=== PATIENT | female | born 1980 | race Caucasian/White ===

== ENCOUNTER → 2016-03-28 | Outpatient (CLI) | payer BC ==
[~2016-03-28] MED LIST: ALBUAER2; IBUP600T44; NVLGI; OXYC-57; SYN100; SYN50
== END | disposition home or self-care (01) ==
LOC: C.PAPS 11:42
PROVIDERS: ATTEND Obstetrics & Gynecology
DX: Z01.419 Encounter for gynecological examination (general) (routine) without abnormal findings (principal); Z87.42 Personal history of other diseases of the female genital tract

== ENCOUNTER → 2016-08-11 | Outpatient (CLI) | payer BC ==
[2016-08-11 17:39] LABS: PREG INTERNAL NEGATIVE QC NEG CLEAR BACKGROUND; PREG INTERNAL POSITIVE QC POS CONTROL LINE
== END | disposition home or self-care (01) ==
LOC: C.LAB1850 16:30
PROVIDERS: ATTEND Obstetrics & Gynecology
DX: N93.9 Abnormal uterine and vaginal bleeding, unspecified (principal)

== ENCOUNTER → 2017-01-05 | Outpatient (CLI) | payer BC ==
[~2017-01-05] MED LIST changes: +GADAVIST IV PRN
--- NOTE | 2017-01-05 12:13 | DIAGNOSTIC IMAGING REPORT ---
Brain MRA HISTORY: HEADACHE TECHNIQUE: 3-D [id number] MRA of the brain was performed without contrast. COMPARISON STUDY: None. FINDINGS: Visualized intracranial internal carotid arteries, distal vertebral arteries, and basilar artery are widely patent. There is no significant stenosis, occlusion, or aneurysm seen within the bilateral ACAs, MCAs, or assistant golf professional. IMPRESSION: No significant stenosis, occlusion, or aneurysm within the [place]. Electronically signed by: Kevin Bynum M.D. 01/05/2017 12:11 PM Dictated Date/Time: 01/05/2017 12:09 PM
--- NOTE | 2017-01-05 12:23 | DIAGNOSTIC IMAGING REPORT ---
Brain MRI WITH AND WITHOUT CONTRAST HISTORY: HEADACHE TECHNIQUE: Multiplanar multisequence MRI of the brain was performed both before and after the intravenous administration of contrast. COMPARISON STUDY: None. FINDINGS: There are no areas of restricted diffusion to suggest acute infarction. The midline structures are intact. The paranasal sinuses are clear. The mastoid air cells are clear. The ventricles and sulci are within normal limits for age. There is no mass, hematoma, midline shift. The major vascular flow-voids at the skull base are well maintained. Postcontrast sequences show no areas of abnormal enhancement. IMPRESSION: No acute intracranial abnormality. Electronically signed by: Kevin Bynum M.D. 01/05/2017 12:22 PM Dictated Date/Time: 01/05/2017 12:14 PM
--- NOTE | 2017-01-05 12:26 | DIAGNOSTIC IMAGING REPORT ---
NECK MRA HISTORY: R51 [id number] Near-syncope or [id number] TECHNIQUE: [id number] and gadolinium-enhanced MRA of the neck was performed both before and after the intravenous administration of contrast. All measurements were calculated based on NASCET criteria. COMPARISON STUDY: None. FINDINGS: The aortic arch and proximal great vessels are widely patent. There is no significant stenosis, occlusion, or dissection identified within the bilateral common carotid, internal carotid, or vertebral arteries. IMPRESSION: No significant stenosis, occlusion, or dissection identified within the carotid or vertebral arteries. Electronically signed by: Kevin Bynum M.D. 01/05/2017 12:25 PM Dictated Date/Time: 01/05/2017 12:22 PM
== END | disposition home or self-care (01) ==
LOC: C.MRI 10:28
PROVIDERS: ATTEND Nurse Practitioner Family
DX: R55 Syncope and collapse (principal); R51 Headache

== ENCOUNTER → 2017-02-23 | Day surgery (SDC) | payer BC ==
[~2017-02-23] VITALS: Ht 172.7 cm; Wt 90.0 kg
[~2017-02-23] MED LIST changes: +ADVIN25/60 INH; +FERR1TAB2 PO; +FLVHFA110 INH; -GADAVIST IV PRN; +MECL1TAB42 PO; +MONT1TAB5 PO; +MULT-506 PO; +Mirena; +NOVOLOG; +VNTHFA/IN INH; +[UNRECOGNIZED DRUG - OTHER]; +[UNRECOGNIZED DRUG - OTHER]
[2017-02-23 07:02] VITALS: Ht 172.7 cm; Wt 90.0 kg
--- NOTE | 2017-02-23 08:31 | [facility] Operative Report ---
Operative Report Operative Date Feb 23, 2017. Pre-Operative Diagnosis Intermittent dizziness Post-Operative Diagnosis same Procedure(s) Performed Tilt table test Surgeon Dr. Aguila Land Leveler Surgeon(s) none Estimated Blood Loss none Findings Normal tilt test Specimens None Complication(s) None Disposition home Description of Procedure After obtaining informed consent for the procedure, the patient was brought to the laboratory having nothing by mouth after midnight. The patient was identified in the laboratory, placed supine on the tilt table and remained supine for 15 minutes. The head of the tilt table was then raised to a 70 head up position where it remained for 30 minutes. The head of the bed was then placed supine and monitoring continued for an additional 15 minutes. During the procedure continuous pulse oximetry and electrocardiography was performed, noninvasive blood pressure monitoring was performed at five-minute intervals. Findings: The heart rate and blood pressure did not fall during the study. Pulse oximetry was unchanged throughout the study. There was no significant change in blood pressure or heart rate when the patient was placed supine. Details of the blood pressure, heart rate and pulse oximetry data are presented on the procedure data sheet. Conclusions: Normal tilt test with no evidence of orthostasis or vasovagal physiology I attest to the content of the Intraoperative Record and any orders documented therein. Any exceptions are noted below.
== END | disposition home or self-care (01) ==
LOC: C.CATH 06:48
PROVIDERS: ATTEND Internal Medicine Cardiovascular Disease
DX: R42 Dizziness and giddiness (principal); R51 Headache; J30.9 Allergic rhinitis, unspecified; J45.909 Unspecified asthma, uncomplicated; I89.0 Lymphedema, not elsewhere classified; E10.9 Type 1 diabetes mellitus without complications; Z83.3 Family history of diabetes mellitus; Z82.49 Family history of ischemic heart disease and other diseases of the circulatory system; Z82.3 Family history of stroke

== ENCOUNTER 2020-09-15 10:35 | Inpatient (IN) ==
[2020-09-15] MEDS ORDERED: SODIUM CHLORIDE 0.9% 1000ML 2,000 ML IV ONE (11:58)
[2020-09-15] MEDS ORDERED: cefTRIAXone SODIUM 2,000 MG/70 ML BAG IV STA (11:58)
[2020-09-15] MEDS ORDERED: DOXYCYCLINE HYCLATE 100 MG in DEXTROSE 5% 100 ML IV STA (11:58)
[2020-09-15] MEDS ORDERED: FAMOTIDINE 20MG IV PUSH 20 MG/5 ML SYR IV STA (11:59)
[2020-09-15] MEDS ORDERED: ONDANSETRON INJ 2 MG/ML 2 ML VIAL IV STA (11:59)
[2020-09-15 12:09] LABS: Basophils # (auto) 0.01 K/uL (0-0.2); Basophils % (auto) 0.1 %; Eosinophils # (auto) 0.12 K/uL (0-0.5); Hematocrit (blood only) 38.1 % (37-47); Hemoglobin 12.8 g/dL (12.0-16.0); Immature Granulocytes # (auto) 0.04 K/uL (0.00-0.02); Immature Granulocytes % (auto) 0.3 %; Lymphocytes # (auto) 0.94 K/uL (1.2-3.4); Lymphocytes % (auto) 8.1 %; Mean Corpuscular Hemoglobin 30.5 pg (25-34); Mean Corpuscular Hgb Conc 33.6 g/dL (32-36); Mean Corpuscular Volume 90.9 fL (80-100); Mean Platelet Volume 11.3 fL (7.4-10.4); Monocytes # (auto) 0.92 K/uL (0.11-0.59); Neutrophils # (auto) 9.52 K/uL (1.4-6.5); Neutrophils % (auto) 82.5 %; Platelet Count 187 K/uL (130-400); RDW Coefficient of Variation 13.1 % (11.5-14.5); RDW Standard Deviation 43.7 fL (36.4-46.3); Red Blood Count 4.19 M/uL (4.2-5.4); White Blood Count 11.55 K/uL (4.8-10.8)
[2020-09-15 12:17] LABS: Alanine Aminotransferase 40 U/L (12-78); Albumin Level 3.7 gm/dl (3.4-5.0); Aspartate Aminotransferase 18 U/L (15-37); Bilirubin Direct 0.7 mg/dl (0-0.2); Blood Urea Nitrogen 14 mg/dl (7-18); Calcium 9.1 mg/dl (8.5-10.1); Carbon Dioxide 25 mmol/L (21-32); Chloride 101 mmol/L (98-107); Creatinine Clr Calc Pharmacy 83.9 ml/min; Est GFR (Non-African American) 79.4 ml/min; Glucose 188 mg/dl (70-99); Lipase 47 U/L (73-393); Magnesium 2.2 mg/dl (1.8-2.4); Potassium 3.2 mmol/L (3.5-5.1); Sodium 136 mmol/L (136-145)
[2020-09-15 12:19] LABS: Appearance Urine Cloudy (Clear); Bilirubin Urine Negative (Negative); Blood Urine Negative (Negative); Color Urine Yellow; Glucose Urine UA Negative (Negative); Ketones Urine 2+ (Negative); Leukocyte Esterase Urine Trace (Negative); Nitrite Urine Negative (Negative); Protein Urine Trace (Negative); Specific Gravity Urine 1.007 (1.000-1.030); Urobilinogen Urine Negative (Negative)
[2020-09-15 12:20] LABS: Albumin Globulin Ratio 0.8 (0.9-2); Alkaline Phosphatase 111 U/L (45-117); Bilirubin,Total 1.7 mg/dl (0.2-1); Creatine Kinase 43 U/L (26-192); Globulin 4.5 gm/dl (2.5-4.0); Partial Thromboplastin Ratio 1.3; Partial Thromboplastin Time 35.4 Seconds (21.0-31.0); Phosphorus 2.2 mg/dl (2.5-4.9); Total Protein 8.2 gm/dl (6.4-8.2); Troponin I < 0.015 ng/ml (0-0.045)
[2020-09-15 12:28] LABS: Epithelial Cell Urine >30 /lpf (0-5)
[2020-09-15 12:29] LABS: Bacteria Urine 1+ (Negative); RBC Urine 0-4 /hpf (0-4)
[2020-09-15 12:35] LABS: Base Excess VBG -0.4 mEq/L; HCO3 VBG 24 mmol/L; PCO2 VBG 38 mmHg (38-50); PO2 VBG 32 mmHg; pH VBG 7.42 (7.36-7.41)
[2020-09-15 12:37] LABS: Oxygen Saturation VBG < 60.0 %
[2020-09-15 12:39] LABS: Pregnancy Test, Serum Negative (Negative)
[2020-09-15 12:50] LABS: RBC Morphology Unremarkable
--- NOTE | 2020-09-15 12:59 | XRay Report ---
XR chest 1V portable CLINICAL HISTORY: Chest Pain COMPARISON STUDY: No previous studies for comparison. FINDINGS: Lung volumes are normal. Lungs are clear. There is no pneumothorax or pleural effusion. Car diac size is normal. Mediastinal contours are normal. There is no evidence for pulmonary edema. There is subtle interstitial prominence. IMPRESSION: Mild nonspecific interstitial prominence. ACT 112: Negative or not required by law. Electronically signed by: Rolando Santana M.D. 09/15/2020 12:57 PM
--- NOTE | 2020-09-15 13:04 | XRay Report ---
XR tibia fibula RT 2V CLINICAL HISTORY: swelling, pain, redness COMPARISON: Right ankle radiographs August 26, 2019. FINDINGS: No fracture or osseous lesion within the right tibia or fibula is identified. Mild soft ti ssue swelling is noted. This is suboptimally assessed by radiography. IMPRESSION: No osseous abnormality of the right tibia or fibula. ACT 112: Negative or not required by law. Electronically signed by: Rolando Santana M.D. 09/15/2020 1:02 PM
[2020-09-15 13:05] LABS: Procalcitonin 4.58 ng/ml (0-0.5)
[2020-09-15 13:10] LABS: Lyme Ab IgG w/WB Rflx Negative (Negative); Lyme Ab IgM w/WB Rflx Negative (Negative)
--- NOTE | 2020-09-15 13:26 | XRay Report ---
XR foot RT min 3V routine CLINICAL HISTORY: swelling, pain, redness COMPARISON: Right ankle radiographs August 26, 2019. FINDINGS: Lateral view demonstrates significant dorsal soft tissue swelling of the right foot. No ac pilot point fracture is noted. There is no evidence for osteomyelitis. There is minimal posterior and plantar calcaneal spurring. IMPRESSION: 1. Right foot dorsal soft tissue swelling. 2. No acute fracture. No evidence for osteomyelitis. ACT 112: Negative or not required by law. Electronically signed by: Rolando Santana M.D. 09/15/2020 1:25 PM
--- NOTE | 2020-09-15 14:47 | Ultrasound Report ---
US venous doppler LE RT CLINICAL HISTORY: Right leg redness and swelling COMPARISON STUDY: No previous studies for comparison. FINDINGS: Real-time and color flow Doppler imaging were performed. Flow was seen within the femoral, popliteal and calf veins with no intraluminal thrombus demonstrated. The saphenous vein is patent. IMPRESSION: No evidence of right lower extremity DVT. ACT 112: Negative or not required by law. Electronically signed by: Arnulfo Goddard M.D. 09/15/2020 2:45 PM
[2020-09-15] MEDS ORDERED: POTASSIUM PHOS 3 MMOL/1 ML INFUSION IV STA (15:09)
[2020-09-15] MEDS ORDERED: CEFEPIME 2,000 MG/20 ML VIAL IV STA (15:11)
[2020-09-15] MEDS ORDERED: POTASSIUM PHOSPHATE 6 MMOL in 0.9 % SODIUM CHLORIDE 100 ML IV ONE (15:30)
--- NOTE | 2020-09-15 16:02 | Electrocardiogram Report ---
Test Reason : Blood Pressure : / mmHG Vent. Rate : 076 BPM Atrial Rate : 076 BPM P-R Int : 134 ms QRS Dur : 066 ms QT Int : 404 ms P-R-T Axes : 047 066 -14 degrees QTc Int : 454 ms Normal sinus rhythm Possible Left atrial enlargement Septal infarct , age undetermined Abnormal ECG No previous ECGs available Confirmed by Maxime Smith ([id number]) on 09/15/2020 4:01:51 PM Referred By: REFERRED SELF Confirmed By:Maxime Smith
[2020-09-15] MEDS ORDERED: VANCOMYCIN CONSULT ACTIVE PRN (18:22)
[2020-09-15] MEDS ORDERED: DEXTROSE 50% 50 ML SYRINGE IV PRN (18:22)
[2020-09-15] MEDS ORDERED: GLUCOSE 40% GEL 15 GM TUBE PO PRN (18:22)
[2020-09-15] MEDS ORDERED: GLUCAGON FOR INJ 1 MG VIAL SQ PRN (18:22)
[2020-09-15] MEDS ORDERED: CARBOHYDRATES FOR HYPOGLYCEMIA PO PRN (18:22)
[2020-09-15] MEDS ORDERED: GLUCOSE 10 TABS/TUBE PO PRN (18:22)
--- NOTE | 2020-09-15 18:30 | Emergency Department Note ---
Impression & Plan Cellulitis of leg, right, Diabetes type 1, uncontrolled, Lymphedema ED Provider Note NAME: SANJIV SULLIVAN AGE: 40 SEX: F ARRIVES VIA: Walk-In INFORMANT: Patient, ED PROVIDER(S): Bo Blanco MD CHIEF COMPLAINT: Fever, bodyaches, leg pain/swelling. PLAN: Disposition: Admit MEDICAL DECISION MAKING: The patient is a pleasant 40-year-old woman with a past medical history of type 1 diabetes, chronic lymphedema, obesity, Graves' disease who presents to the emergency department for evaluation of fever/feverishness, generalized body aches and worsening right lower extremity edema from baseline with development of new erythema and increased pain in the setting of being seen in [place] ED on Monday with evaluation including blood work and CT scan. The patient and her partner at the bedside report they had been camping for the weekend when her sym ptoms began abruptly. Per records CT scan was performed due to elevated LFTs with total bilirubin 2 and AST and ALT in the 50s with CT subsequently negative for acute process per visit documentation. It was noted that her WBC was 22K. COVID-19 was negative. Per documentation and the patient it appears she was diagnosed with a viral illness. However, since being seen patient reports worsening body aches and pain in her right leg seen by her PCP today and referred to emergency department. She denies any cough, congestion, chest pain or shortness of breath. She reports some nausea and had single episode of vomiting. She reports her blood sugars have been "okay". On arrival patient is uncomfortable no acute distress, afebrile stable vital signs. She appears clinically dry. Her right lower extremity does exhibit asymmetric edema that is 3+ with erythema warmth and tenderness of the distal right lower leg and foot. There were no overt wounds. Abdomen is benign. EKG without overt acute ischemia. Chest x-ray with nonspecific interstitial prominence. WBC 11.5K decreased from Tres values. H/H and platelets within normal limits. VBG is unremarkable. Chemistry without metabolic acidosis. Lactic acid, 1.1, within normal limits. LFTs do show interval improvement compared to Tres values with total bilirubin 1.7 and direct bilirubin 0.7 and normalization of AST and ALT. Troponin negative/undetectable. hCG was negative. Procalcitonin is elevated at 4.5. UA without convincing evidence of infection epithelial cells are present and patient denies urinary symptoms. Lyme screen was negative. Anaplasma smear was negative. Anaplasma DNA sent out and pending. COVID-19 PCR was negative. Plain films of the right tib-fib and foot without osseous involvement. Venous Doppler negative for DVT. Patient was initially treated empirically with ceftriaxone and doxycycline given possibility of tick exposure. Patient agrees with plan for admission for further management. Case was discussed with LILIYA Wadsworth hospitalist, who will evaluate the patient for admission. Given elevated procalcitonin in setting of cellulitis and type I diabetic we agree to broaden coverage for pseudomonas with cefepime at this time. Triage Nursing notes reviewed and agree them. Additional history obtained from [place] ED records. Prior medical records reviewed Vital Signs: reviewed and remarkable for no significant abnormalities Differential diagnosis: Cellulitis, abscess, MRSA infection, DVT, necrotizing fasciitis, dermatitis, drug eruption, allergic reaction, as well as other pathologies. ER treatment provided: See below. Diagnostics interpreted by me: ECG: Normal sinus rhythm, 76 bpm, no ectopy, no overt ST elevation or depression, QTC 454, QRS 66. Cardiac Monitoring: An order for continuous cardiac monitoring was placed and demonstrated Normal sinus rhythm, 76 bpm, no ectopy. Laboratory studies: See below Imaging studies: See below Consultation(s): Case was discussed with AB Wadsworth hospitalist, who will evaluate the patient for admission. HPI: The patient is a pleasant 40-year-old woman with a past medical history of type 1 diabetes, chronic lymphedema, obesity, Graves' disease who presents to the emergency department for evaluation of fever/feverishness, generalized body aches and worsening right lower extremity edema from baseline with development of new erythema and increased pain in the setting of being seen in [place] ED on Monday with evaluation including blood work and CT scan. The patient and her partner at the bedside report they had been camping for the weekend when her symptoms began abruptly. Per records CT scan was performed due to elevated LFTs with total bilirubin 2 and AST and ALT in the 50s with CT subsequently negative for acute process per visit documentation. It was noted that her WBC was 22K. COVID-19 was negative. Per documentation and the patient it appears she was diagnosed with a viral illness. However, since being seen patient reports worsening body aches and pain in her right leg seen by her PCP today and referred to emergency department. She denies any cough, congestion, chest pain or shortness of breath. She reports some nausea and had single episode of vomiting. She reports her blood sugars have been "okay". ROS: See above HPI for pertinent positives & negatives. A total of 10 systems reviewed and were otherwise negative. PAST MEDICAL HISTORY:See Below PAST SURGICAL HISTORY:See Below FAMILY HISTORY:See Below SOCIAL HISTORY:See Below HOME MEDICATIONS:See Below ALLERGIES:See Below VITALS:See Below PHYSICAL EXAMINATION: GENERAL: Awake, alert, uncomfortable/fatigued-appearing, in no distress HENT: Normocephalic, atraumatic. Oropharynx with dry mucous membranes and otherwise unremarkable. EYES: Normal conjunctiva. Sclera non-icteric. NECK: Supple. No nuchal rigidity. FROM. No JVD. RESPIRATORY: Clear to auscultation. CARDIAC: Regular rate, normal rhythm. Extremities warm and well perfused. Pulses equal. ABDOMEN: Soft, non-distended. No tenderness to palpation. No rebound or guarding. No masses. RECTAL: Deferred. MUSCULOSKELETAL: Chest examination reveals no tenderness. The back is symmetrical on inspection without obvious abnormality. There is no CVA tender ness to palpation. No joint edema. LOWER EXTREMITIES: RLE with asymmetric edema that is 3+ with erythema warmth and tenderness of the distal right lower leg and foot. There were no overt wounds. NEURO: Normal sensorium. No sensory or motor deficits noted. SKIN: Warm/dry. No jaundice noted. Bo Blanco MD Past Med/Surg History Medical History (Updated 09/16/20 @ 01:38 by Bo Blanco MD) Abnormal uterine bleeding Dyslipidemia Graves disease Iron deficiency Menorrhagia Palpitations TMJ syndrome Surgical History H/O section H/O tooth extraction S/P tonsillectomy [place] teeth removed Family History Father Prostate cancer Other Asthma Cancer Coronary heart disease Diabetes Stroke Denies family history of Ovarian cancer Myocardial infarction Breast cancer Colorectal cancer Social History Smoking Status: Never smoker Second Hand Exposure: No; Hx Alcohol Use: No Hx Substance Use: No Preferred Language: [place] Communication Ability: Effective Visual Impairment: No Limitations Hearing Ability: Normal Non Destructive Evaluation Specialist Required: No Beliefs That Will Affect Care: None marital status: Current Living Situation: Family current occupational status: employed current occupation: [employer] at [employer] Other Information That Helps Us Care for You: No Feels Safe at Home: Yes Safety Concerns: Feels Safe At This Time Childhood Exposure to Second-Hand Smoke: No Dental Care, Regularly: Yes Physical Activity Frequency: 5-6 Times per Week Seatbelt Use: always Sunscreen Use: Yes Assistive Devices: None Allergies Allergies Allergy/AdvReac Type Severity Reaction Status Date / Time Penicillins Allergy Intermediate HIVES Verified 09/15/20 14:42 Fish Containing Products Allergy Verified 09/15/20 14:42 house dust Allergy Verified 09/15/20 14:42 Home Meds Home Medications Medication Instructions Recorded Confirmed glucagon HCl 1 mg/mL solution for 1 mg SUBCUT ONCE PRN ea 03/04/19 09/15/20 injection fluticasone propionate 50 1 spray INTRANASAL QAM 08/10/20 09/15/20 mcg/actuation nasal spray,suspension (Flonase Allergy Relief) acetaminophen 500 mg capsule 500 mg PO Q6H PRN 09/15/20 09/15/20 cetirizine 10 mg tablet (Zyrtec) 10 mg PO QAM 09/15/20 09/15/20 methimazole 5 mg tablet 2.5 mg PO Q2D 09/15/20 09/15/20 montelukast 10 mg tablet 10 mg PO QAM 09/15/20 09/15/20 multivitamin 1 tab PO QAM 09/15/20 09/15/20 Previous Rx's Medication Instructions Recorded levonorgestrel 20 mcg/24 hours (6 1 ea IU ONCE #1 ea 09/20/18 yrs) 52 mg intrauterine device compress.stocking,knee,reg,med #3 ea 11/19/18 omalizumab 150 mg/mL subcutaneous 150 mg SQ .COMPLEX #1 ml 03/20/19 syringe (Xolair) compress.stocking,knee,reg,med #3 box 04/17/19 albuterol sulfate 90 mcg/actuation 2 inh INHALATION Q4H PRN #18 g 11/20/19 aerosol inhaler insulin aspart U-100 100 unit/mL 50 unit CONTINUOUS SUBCUTANEOUS 08/27/20 subcutaneous solution (Novolog INFUSION DAILY #50 ml U-100 Insulin aspart) Results & Data (ED) Vital Signs Vital Signs - 24 hr 09/15/20 11:01 09/15/20 11:24 09/15/20 11:30 Temperature 36.7 C Temperature Source Temporal Artery Scan Pulse Rate 71 73 64 Pulse Rate from SpO2 Sensor 73 67 Pulse Rhythm Regular Pulse Strength Normal Respiratory Rate 18 13 16 Respiratory Effort / Characteristics Non-Labored Spontaneous Respiratory Depth Normal Respiratory Pattern Regular Blood Pressure 117/66 126/71 105/62 Blood Pressure Mean 83 89 76 Blood Pressure Position Sitting Pulse Oximetry 99 100 100 Oxygen Delivery Method Room Air Room Air Room Air Sepsis Recent Fever Within 48 Hours Yes Sepsis New/Unexplained Change in Mental Status No Sepsis Action Taken by Nursing No Action Required 09/15/20 12:00 09/15/20 12:30 09/15/20 13:06 Temperature Temperature Source Pulse Rate 79 69 77 Pulse Rate from SpO2 Sensor 80 65 75 Pulse Rhythm Pulse Strength Respiratory Rate 13 12 23 Respiratory Effort / Characteristics Respiratory Depth Respiratory Pattern Blood Pressure 139/76 129/66 136/77 Blood Pressure Mean 97 87 96 Blood Pressure Position Pulse Oximetry 100 100 100 Oxygen Delivery Method Room Air Room Air Room Air Sepsis Recent Fever Within 48 Hours Sepsis New/Unexplained Change in Mental Status Sepsis Action Taken by Nursing 09/15/20 13:30 09/15/20 13:38 09/15/20 14:00 Temperature Temperature Source Pulse Rate 68 78 76 Pulse Rate from SpO2 Sensor 70 76 Pulse Rhythm Regular Pulse Strength Respiratory Rate 16 20 18 Respiratory Effort / Characteristics Respiratory Depth Respiratory Pattern Blood Pressure 120/79 115/72 Blood Pressure Mean 92 86 Blood Pressure Position Pulse Oximetry 100 97 99 Oxygen Delivery Method Room Air Room Air Room Air Sepsis Recent Fever Within 48 Hours Sepsis New/Unexplained Change in Mental Status Sepsis Action Taken by Nursing Laboratory Data Attestation: I reviewed the patient's lab results. Result diagrams: 09/15/20 11:20 09/15/20 11:20 Lab Results 09/15/20 09/15/20 09/15/20 Range/Units 11:20 11:20 11:20 WBC 11.55 H (4.8-10.8) K/uL RBC 4.19 L (4.2-5.4) M/uL Hgb 12.8 (12.0-16.0) g/dL Hct 38.1 (37-47) % MCV 90.9 (80-100) fL MCH 30.5 (25-34) pg MCHC 33.6 (32-36) g/dL RDW Std Deviation 43.7 (36.4-46.3) fL RDW Coeff of [place] 13.1 (11.5-14.5) % Plt Count 187 (130-400) K/uL MPV 11.3 H (7.4-10.4) fL Immature Gran % (Auto) 0.3 % Neut % (Auto) 82.5 % Lymph % (Auto) 8.1 % [place] % (Auto) 8.0 % Eos % (Auto) 1.0 % Baso % (Auto) 0.1 % Neut # (Auto) 9.52 H (1.4-6.5) K/uL Lymph # (Auto) 0.94 L (1.2-3.4) K/uL [place] # (Auto) 0.92 H (0.11-0.59) K/uL Eos # (Auto) 0.12 (0-0.5) K/uL Baso # (Auto) 0.01 (0-0.2) K/uL Immature Gran # (Auto) 0.04 H (0.00-0.02) K/uL RBC Morphology Unremarkable APTT 35.4 H (21.0-31.0) Seconds PTT Ratio 1.3 VBG pH (7.36-7.41) VBG pCO2 (38-50) mmHg VBG pO2 mmHg VBG HCO3 mmol/L VBG O2 Saturation % VBG Base Excess mEq/L Barometric Pressure mm/Hg Sodium (136-145) mmol/L Potassium (3.5-5.1) mmol/L Chloride (98-107) mmol/L Carbon Dioxide (21-32) mmol/L Anion Gap (3-11) BUN (7-18) mg/dl Creatinine (0.6-1.2) mg/dl Est Cr Clr Drug Dosing ml/min Est GFR ( Amer) ml/min Est GFR (Non-Af Amer) ml/min BUN/Creatinine Ratio (10-20) Glucose (70-99) mg/dl Lactate (0.4-2.0) mmol/L Calcium (8.5-10.1) mg/dl Phosphorus (2.5-4.9) mg/dl Magnesium (1.8-2.4) mg/dl Total Bilirubin (0.2-1) mg/dl Direct Bilirubin (0-0.2) mg/dl AST (15-37) U/L ALT (12-78) U/L Alkaline Phosphatase (45-117) U/L Total Creatine Kinase (26-192) U/L Troponin I (0-0.045) ng/ml Total Protein (6.4-8.2) gm/dl Albumin (3.4-5.0) gm/dl Globulin (2.5-4.0) gm/dl Albumin/Globulin Ratio (0.9-2) Lipase (73-393) U/L Procalcitonin 4.58 H (0-0.5) ng/ml HCG, Qual Negative (Negative) Urine Color Urine Appearance (Clear) Urine pH (4.5-7.5) Ur Specific [place] (1.000-1.030) Urine Protein (Negative) Urine Glucose (UA) (Negative) Urine Ketones (Negative) Urine Blood (Negative) Urine Nitrite (Negative) Urine Bilirubin (Negative) Urine Urobilinogen (Negative) Ur Leukocyte Esterase (Negative) Urine RBC (0-4) /hpf Urine WBC (0-5) /hpf Ur Epithelial Cells (0-5) /lpf Urine Bacteria (Negative) Anaplasma Smear See Comment Lyme Disease IgG Ab Negative (Negative) Lyme Disease IgM Ab Negative (Negative) COVID-19 Eval Order SARS-CoV-2 (PCR) (Negative) 09/15/20 09/15/20 09/15/20 Range/Units 11:20 11:20 11:20 WBC (4.8-10.8) K/uL RBC (4.2-5.4) M/uL Hgb (12.0-16.0) g/dL Hct (37-47) % MCV (80-100) fL MCH (25-34) pg MCHC (32-36) g/dL RDW Std Deviation (36.4-46.3) fL RDW Coeff of Francisco (11.5-14.5) % Plt Count (130-400) K/uL MPV (7.4-10.4) fL Immature Gran % (Auto) % Neut % (Auto) % Lymph % (Auto) % [place] % (Auto) % Eos % (Auto) % Baso % (Auto) % Neut # (Auto) (1.4-6.5) K/uL Lymph # (Auto) (1.2-3.4) K/uL [place] # (Auto) (0.11-0.59) K/uL Eos # (Auto) (0-0.5) K/uL Baso # (Auto) (0-0.2) K/uL Immature Gran # (Auto) (0.00-0.02) K/uL RBC Morphology APTT (21.0-31.0) Seconds PTT Ratio VBG pH (7.36-7.41) VBG pCO2 (38-50) mmHg VBG pO2 mmHg VBG HCO3 mmol/L VBG O2 Saturation % VBG Base Excess mEq/L Barometric Pressure mm/Hg Sodium 136 (136-145) mmol/L Potassium 3.2 L (3.5-5.1) mmol/L Chloride 101 (98-107) mmol/L Carbon Dioxide 25 (21-32) mmol/L Anion Gap 9.0 (3-11) BUN 14 (7-18) mg/dl Creatinine 0.90 (0.6-1.2) mg/dl Est Cr Clr Drug Dosing 83.9 ml/min Est GFR ( Amer) 92.0 ml/min Est GFR (Non-Af Amer) 79.4 ml/min BUN/Creatinine Ratio 15.0 (10-20) Glucose 188 H (70-99) mg/dl Lactate (0.4-2.0) mmol/L Calcium 9.1 (8.5-10.1) mg/dl Phosphorus 2.2 L (2.5-4.9) mg/dl Magnesium 2.2 (1.8-2.4) mg/dl Total Bilirubin 1.7 H (0.2-1) mg/dl Direct Bilirubin 0.7 H (0-0.2) mg/dl AST 18 (15-37) U/L ALT 40 (12-78) U/L Alkaline Phosphatase 111 (45-117) U/L Total Creatine Kinase 43 (26-192) U/L Troponin I < 0.015 (0-0.045) ng/ml Total Protein 8.2 (6.4-8.2) gm/dl Albumin 3.7 (3.4-5.0) gm/dl Globulin 4.5 H (2.5-4.0) gm/dl Albumin/Globulin Ratio 0.8 L (0.9-2) Lipase 47 L (73-393) U/L Procalcitonin Cancelled (0-0.5) ng/ml HCG, Qual (Negative) Urine Color Yellow Urine Appearance Cloudy A (Clear) Urine pH 6.0 (4.5-7.5) Ur Specific [place] 1.007 (1.000-1.030) Urine Protein Trace H (Negative) Urine Glucose (UA) Negative (Negative) Urine Ketones 2+ H (Negative) Urine Blood Negative (Negative) Urine Nitrite Negative (Negative) Urine Bilirubin Negative (Negative) Urine Urobilinogen Negative (Negative) Ur Leukocyte Esterase Trace H (Negative) Urine RBC 0-4 (0-4) /hpf Urine WBC 5-10 H (0-5) /hpf Ur Epithelial Cells >30 H (0-5) /lpf Urine Bacteria 1+ H (Negative) Anaplasma Smear Lyme Disease IgG Ab (Negative) Lyme Disease IgM Ab (Negative) COVID-19 Eval Order SARS-CoV-2 (PCR) (Negative) 09/15/20 09/15/20 09/15/20 Range/Units 11:53 11:53 12:23 WBC (4.8-10.8) K/uL RBC (4.2-5.4) M/uL Hgb (12.0-16.0) g/dL Hct (37-47) % MCV (80-100) fL MCH (25-34) pg MCHC (32-36) g/dL RDW Std Deviation (36.4-46.3) fL RDW Coeff of Francisco (11.5-14.5) % Plt Count (130-400) K/uL MPV (7.4-10.4) fL Immature Gran % (Auto) % Neut % (Auto) % Lymph % (Auto) % [place] % (Auto) % Eos % (Auto) % Baso % (Auto) % Neut # (Auto) (1.4-6.5) K/uL Lymph # (Auto) (1.2-3.4) K/uL [place] # (Auto) (0.11-0.59) K/uL Eos # (Auto) (0-0.5) K/uL Baso # (Auto) (0-0.2) K/uL Immature Gran # (Auto) (0.00-0.02) K/uL RBC Morphology APTT (21.0-31.0) Seconds PTT Ratio VBG pH (7.36-7.41) VBG pCO2 (38-50) mmHg VBG pO2 mmHg VBG HCO3 mmol/L VBG O2 Saturation % VBG Base Excess mEq/L Barometric Pressure mm/Hg Sodium (136-145) mmol/L Potassium (3.5-5.1) mmol/L Chloride (98-107) mmol/L Carbon Dioxide (21-32) mmol/L Anion Gap (3-11) BUN (7-18) mg/dl Creatinine (0.6-1.2) mg/dl Est Cr Clr Drug Dosing ml/min Est GFR ( Amer) ml/min Est GFR (Non-Af Amer) ml/min BUN/Creatinine Ratio (10-20) Glucose (70-99) mg/dl Lactate 1.1 (0.4-2.0) mmol/L Calcium (8.5-10.1) mg/dl Phosphorus (2.5-4.9) mg/dl Magnesium (1.8-2.4) mg/dl Total Bilirubin (0.2-1) mg/dl Direct Bilirubin (0-0.2) mg/dl AST (15-37) U/L ALT (12-78) U/L Alkaline Phosphatase (45-117) U/L Total Creatine Kinase (26-192) U/L Troponin I (0-0.045) ng/ml Total Protein (6.4-8.2) gm/dl Albumin (3.4-5.0) gm/dl Globulin (2.5-4.0) gm/dl Albumin/Globulin Ratio (0.9-2) Lipase (73-393) U/L Procalcitonin (0-0.5) ng/ml HCG, Qual (Negative) Urine Color Urine Appearance (Clear) Urine pH (4.5-7.5) Ur Specific [place] (1.000-1.030) Urine Protein (Negative) Urine Glucose (UA) (Negative) Urine Ketones (Negative) Urine Blood (Negative) Urine Nitrite (Negative) Urine Bilirubin (Negative) Urine Urobilinogen (Negative) Ur Leukocyte Esterase (Negative) Urine RBC (0-4) /hpf Urine WBC (0-5) /hpf Ur Epithelial Cells (0-5) /lpf Urine Bacteria (Negative) Anaplasma Smear Lyme Disease IgG Ab (Negative) Lyme Disease IgM Ab (Negative) COVID-19 Eval Order Covid19 at [facility] SARS-CoV-2 (PCR) NEGATIVE (Negative) 09/15/20 Range/Units 12:23 WBC (4.8-10.8) K/uL RBC (4.2-5.4) M/uL Hgb (12.0-16.0) g/dL Hct (37-47) % MCV (80-100) fL MCH (25-34) pg MCHC (32-36) g/dL RDW Std Deviation (36.4-46.3) fL RDW Coeff of [place] (11.5-14.5) % Plt Count (130-400) K/uL MPV (7.4-10.4) fL Immature Gran % (Auto) % Neut % (Auto) % Lymph % (Auto) % [place] % (Auto) % Eos % (Auto) % Baso % (Auto) % Neut # (Auto) (1.4-6.5) K/uL Lymph # (Auto) (1.2-3.4) K/uL [place] # (Auto) (0.11-0.59) K/uL Eos # (Auto) (0-0.5) K/uL Baso # (Auto) (0-0.2) K/uL Immature Gran # (Auto) (0.00-0.02) K/uL RBC Morphology APTT (21.0-31.0) Seconds PTT Ratio VBG pH 7.42 H (7.36-7.41) VBG pCO2 38 (38-50) mmHg VBG pO2 32 mmHg VBG HCO3 24 mmol/L VBG O2 Saturation < 60.0 % VBG Base Excess -0.4 mEq/L Barometric Pressure 732.2 mm/Hg Sodium (136-145) mmol/L Potassium (3.5-5.1) mmol/L Chloride (98-107) mmol/L Carbon Dioxide (21-32) mmol/L Anion Gap (3-11) BUN (7-18) mg/dl Creatinine (0.6-1.2) mg/dl Est Cr Clr Drug Dosing ml/min Est GFR ( Amer) ml/min Est GFR (Non-Af Amer) ml/min BUN/Creatinine Ratio (10-20) Glucose (70-99) mg/dl Lactate (0.4-2.0) mmol/L Calcium (8.5-10.1) mg/dl Phosphorus (2.5-4.9) mg/dl Magnesium (1.8-2.4) mg/dl Total Bilirubin (0.2-1) mg/dl Direct Bilirubin (0-0.2) mg/dl AST (15-37) U/L ALT (12-78) U/L Alkaline Phosphatase (45-117) U/L Total Creatine Kinase (26-192) U/L Troponin I (0-0.045) ng/ml Total Protein (6.4-8.2) gm/dl Albumin (3.4-5.0) gm/dl Globulin (2.5-4.0) gm/dl Albumin/Globulin Ratio (0.9-2) Lipase (73-393) U/L Procalcitonin (0-0.5) ng/ml HCG, Qual (Negative) Urine Color Urine Appearance (Clear) Urine pH (4.5-7.5) Ur Specific [place] (1.000-1.030) Urine Protein (Negative) Urine Glucose (UA) (Negative) Urine Ketones (Negative) Urine Blood (Negative) Urine Nitrite (Negative) Urine Bilirubin (Negative) Urine Urobilinogen (Negative) Ur Leukocyte Esterase (Negative) Urine RBC (0-4) /hpf Urine WBC (0-5) /hpf Ur Epithelial Cells (0-5) /lpf Urine Bacteria (Negative) Anaplasma Smear Lyme Disease IgG Ab (Negative) Lyme Disease IgM Ab (Negative) COVID-19 Eval Order SARS-CoV-2 (PCR) (Negative) Administered Medications Enoxaparin Sodium (Enoxaparin Inj 40 Mg/0.4 Ml Syr) 40 mg SQ Q24H MARBIN Stop: 10/15/20 20:59 Last Admin: 09/15/20 20:13 Dose: 40 mg Documented by: [id number] Cefepime HCl 2,000 mg/ Syringe 20 mls @ 5 mls/min IV Q12 MARBIN; Protocol Stop: 09/22/20 20:59 Last Admin: 09/15/20 20:14 Dose: 5 mls/min Documented by: [id number] Insulin Aspart (Novolog Insulin Pump) 1 ea N/A ACHS MARBIN; Protocol Stop: 10/15/20 20:59 Last Admin: 09/15/20 21:15 Dose: 1 ea Documented by: [id number] Montelukast Sodium (Montelukast Sodium 10 Mg Tablet) 10 mg PO HS MARBIN Stop: 10/15/20 20:59 Last Admin: 09/15/20 20:14 Dose: 10 mg Documented by: [id number] Morphine Sulfate (Morphine Sulfate 2 Mg/Ml Carp) 2 mg IV Q4H PRN PRN Reason: Pain Stop: 09/29/20 19:23 Last Admin: 09/15/20 23:19 Dose: 2 mg Documented by: [id number] Discontinued Medications Sodium Chloride (Nss 1000ml) 2,000 mls @ 999 mls/hr IV .Q2H1M ONE Stop: 09/15/20 13:58 Last Infusion: 09/15/20 14:25 Dose: 0 mls/hr Documented by: [id number] Admin: 09/15/20 12:24 Dose: 999 mls/hr Documented by: [id number] Ceftriaxone Sodium (Rocephin) 2,000 mg in 70 mls @ 140 mls/hr IV NOW STA Stop: 09/15/20 12:27 Last Infusion: 09/15/20 12:56 Dose: 0 mls/hr Documented by: [id number] Admin: 09/15/20 12:26 Dose: 140 mls/hr Documented by: [id number] Doxycycline Hyclate 100 mg/ (Dextrose) 110 mls @ 50 mls/hr IV NOW STA Stop: 09/15/20 14:09 Last Infusion: 09/15/20 15:20 Dose: 0 mls/hr Documented by: [id number] Admin: 09/15/20 13:08 Dose: 50 mls/hr Documented by: [id number] Famotidine (Pepcid 20mg Iv Push) 20 mg in 5 mls @ 2.5 mls/min IV NOW STA Stop: 09/15/20 12:00 Last Admin: 09/15/20 12:25 Dose: 2.5 mls/min Documented by: [id number] Cefepime HCl (Maxipime) 2,000 mg in 20 mls @ 5 mls/min IV NOW STA; Protocol Stop: 09/15/20 15:14 Last Admin: 09/15/20 15:35 Dose: 5 mls/min Documented by: [id number] Potassium Phosphate 6 mmol/ (Sodium Chloride) 102 mls @ 102 mls/hr IV 1530 ONE Stop: 09/15/20 16:29 Last Infusion: 09/15/20 17:19 Dose: 0 mls/hr Documented by: [id number] Admin: 09/15/20 15:56 Dose: 102 mls/hr Documented by: [id number] Vancomycin HCl 1,750 mg/ (Sodium Chloride) 535 mls @ 200 mls/hr IV NOW ONE Stop: 09/15/20 22:10 Last Infusion: 09/15/20 22:54 Dose: 0 mls/hr Documented by: [id number] Admin: 09/15/20 20:13 Dose: 200 mls/hr Documented by: [id number] Ondansetron HCl (Ondansetron Inj 2 Mg/Ml 2 Ml Vial) 4 mg IV NOW STA Stop: 09/15/20 12:00 Last Admin: 09/15/20 12:25 Dose: 4 mg Documented by: [id number] Potassium Phosphate (Potassium Phos 3 Mmol/1 Ml Infusion) 6 mmol IV NOW STA Stop: 09/15/20 15:10 Last Admin: 09/15/20 20:15 Dose: Not Given Documented by: [id number] Imaging Data Radiologist's Impression: Venous Doppler Study 09/15/20 11:56 US venous doppler LE RT CLINICAL HISTORY: Right leg redness and swelling COMPARISON STUDY: No previous studies for comparison. FINDINGS: Real-time and color flow Doppler imaging were performed. Flow was seen within the femoral, popliteal and calf veins with no intraluminal thrombus demonstrated. The saphenous vein is patent. IMPRESSION: No evidence of right lower extremity DVT. ACT 112: Negative or not required by law. Electronically signed by: Arnulfo Goddard M.D. 09/15/2020 2:45 PM Discharge Plan Visit Data Chief Complaint: Illness Stated Complaint: PAIN ALL OVER,RT LEG RED AND SWELLING ED Provider: Bo Blanco Discharge Problem: Cellulitis of leg, right, Diabetes type 1, uncontrolled, Lymphedema Patient Disposition: Admitted As Inpatient Discharge Instructions Interventions: ED Discharge Assessment Last Done: 09/15/20 18:05 Discharge Problem: Diabetes type 1, uncontrolled Qualifiers: Glycemic state: with hyperglycemia Qualified Code(s): E10.65 - Type 1 diabetes mellitus with hyperglycemia
[2020-09-15 18:54] LABS: Thyroid Stimulating Hormone 6.21 uIu/ml (0.300-4.500)
[2020-09-15] MEDS ORDERED: INSULIN ASPART 100 UNITS/ML VIAL SC PRN (19:00)
[2020-09-15 19:07] LABS: T4 Free Thyroxine 1.28 ng/dl (0.8-1.6)
[2020-09-15] MEDS ORDERED: MoRPHine SULFATE 2 MG/ML CARP IV PRN (19:24)
--- NOTE | 2020-09-15 19:26 | History & Physical Report ---
Date of Service September 15, 2020 Assessment & Plan (1) Pain of right lower extremity: Plan: 40yo female with history of DM-I presenting with 3 days of persistent fever, chills, body aches and malaise associated with worsening redness/swelling and pain of RLE. Patient febrile, hemodynamically stable. She has an elevated WBC as well as procalcitonin. Concern for cellulitis. No DVT or fracture. No clinical evidence of deep soft-tissue or necrotizing fasciitis at this time. Her foot is exquisitely tender to palpation which is somewhat concerning. -Observation to medical -Follow cultures - blood and urine -Monitor redness and swelling of RLE -Vancomycin and Cefepime empirically -If patient clinically worsens or becomes unstable would check CT of RLE and consult general surgery (2) Diabetes type 1, uncontrolled: Plan: Blood sugar presently 185. Patient with insulin pump in place, states that her blood sugars have been lower than usual which she thinks is secondary to her recent hiking and biking and increased exercise. Patient manages her own pump without difficulty -May continue home insulin pump -[facility] qAC/HS (3) Asthma: Plan: Chronic. Well controlled -Continue Singulair (4) Graves disease: Plan: Chronic. TSH elevated at 6.21. Patient states that she hasn't taken this medication for some time. -Continue Methimazole 2.5mg po q2D Plan: F/E/N - Heplock. K and PO4 repletion, repeat chemistry in AM, Carb count/Type I DM diet as tolerated Ppx - Lovenox 40 Code - Full per discussion with patient Dispo - Observation to Medical Admission and Anticipated Discharge Date Admission Date: September 15, 2020 History of Present Illness Chief Complaint: RLE pain Primary Care Provider: Tesfaye Couch DO Latoya Hines is a 40yo female with history of DM-I with insulin pump in place, Hypothyroidism and chronic lymphedema presenting with 3 days of fever, diffuse body aches, nausea with 3 episodes of non-bloody/non-bilious emesis. Patient wa s seen at [facility] on Monday with these complaints - at that time she was found to have a WBC count of 22 and a bili of 2. Patient was administered IV fluids and anti-emetics and ultimately discharged home with diagnosis of a viral illness. Patient's symptoms have persisted since Monday. She also developed worsening swelling, redness and pain of the RLE. Pain 10/10 in severity, patient unable to bear weight. Patient has been febrile x 3 days to Tm of 102. She also reports decreased oral intake. Otherwise she is without complaint - specifically denies chest pain/palpitations/cough/SOB/abdominal pain/nausea/vomiting/diarrhea or constipation. No dysuria or flank pain. Patient denies trauma to the foot. Denies sick contacts, recent travel or tick bites. ER Course: Doxycycline, Cefepime, Zofran, Ceftriaxone, KPhos Allergies Allergy/AdvReac Type Severity Reaction Status Date / Time Penicillins Allergy Intermediate HIVES Verified 09/15/20 14:42 Fish Containing Products Allergy Verified 09/15/20 14:42 house dust Allergy Verified 09/15/20 14:42 Home Medications Medication Instructions Recorded Confirmed Type levonorgestrel 20 mcg/24 hours (6 1 ea IU ONCE #1 ea 09/20/18 09/15/20 Rx yrs) 52 mg intrauterine device compress.stocking,knee,reg,med #3 ea 11/19/18 09/15/20 Rx glucagon HCl 1 mg/mL solution for 1 mg SUBCUT ONCE PRN ea 03/04/19 09/15/20 History injection omalizumab 150 mg/mL subcutaneous 150 mg SQ .COMPLEX #1 ml 03/20/19 09/15/20 Rx syringe (Xolair) compress.stocking,knee,reg,med #3 box 04/17/19 09/15/20 Rx albuterol sulfate 90 mcg/actuation 2 inh INHALATION Q4H PRN #18 g 11/20/19 09/15/20 Rx aerosol inhaler fluticasone propionate 50 1 spray INTRANASAL QAM 08/10/20 09/15/20 History mcg/actuation nasal spray,suspension (Flonase Allergy Relief) insulin aspart U-100 100 unit/mL 50 unit CONTINUOUS SUBCUTANEOUS 08/27/20 09/15/20 Rx subcutaneous solution (Novolog INFUSION DAILY #50 ml U-100 Insulin aspart) acetaminophen 500 mg capsule 500 mg PO Q6H PRN 09/15/20 09/15/20 History cetirizine 10 mg tablet (Zyrtec) 10 mg PO QAM 09/15/20 09/15/20 History methimazole 5 mg tablet 2.5 mg PO Q2D 09/15/20 09/15/20 History montelukast 10 mg tablet 10 mg PO QAM 09/15/20 09/15/20 History multivitamin 1 tab PO QAM 09/15/20 09/15/20 History Past Med/Surg History Medical History (Updated 09/15/20 @ 19:56 by Jennifer Charles DO) Abnormal uterine bleeding Dyslipidemia Graves disease Iron deficiency Menorrhagia Palpitations TMJ syndrome Surgical History H/O section H/O tooth extraction S/P tonsillectomy [place] teeth removed Family History Father Prostate cancer Other Asthma Cancer Coronary heart disease Diabetes Stroke Denies family history of Ovarian cancer Myocardial infarction Breast cancer Colorectal cancer Social History Smoking Status: Never smoker Second Hand Exposure: No; Hx Alcohol Use: No Hx Substance Use: No Preferred Language: Sudanese Communication Ability: Effective Visual Impairment: No Limitations Hearing Ability: Normal 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 Beliefs That Will Affect Care: None marital status: Current Living Situation: Family current occupational status: employed current occupation: [employer] Other Information That Helps Us Care for You: No Feels Safe at Home: Yes Safety Concerns: Feels Safe At This Time Childhood Exposure to Second-Hand Smoke: No Dental Care, Regularly: Yes Physical Activity Frequency: 5-6 Times per Week Seatbelt Use: always Sunscreen Use: Yes Review of Systems Review of Systems: All systems reviewed & are unremarkable except as noted in HPI & below Physical Exam Physical Exam: General: patient resting comfortably, NAD, non-toxic in appearance, AA&O x 4 Skin: redness of RLE to mid-curry HEENT: NC/AT, PERRL, EOMI, anicteric sclera, conjunctiva without injection, external ear normal to inspection and nontender, nares patent, moist mucus membranes, dentition intact, no oropharyngeal lesions, neck supple, trachea midline, no LAD, no thyromegaly, no JVD Heart: +S1/S2, regular, no m/r/g Lungs: equal air entry bilaterally, no rales/rhonchi/wheezes Abd: +BS, soft, NT/ND, no masses/organomegaly/ascites Ext: warm, 2+ pulses in UE/LE bilaterally, no clubbing/cyanosis, redness of RLE to mid-curry, exquisitely tender to palpation, no crepitus/bullae/lymphangitic streaking, no pain above redness Neuro: nonfocal, patient AA&O x 4, speech intact, no facial droop, moving all extremities on command with equal strength 5/5 Results & Data Results & Data ([facility]) Vital Signs (Past 12 Hours) Vital Signs Temp Pulse Pulse Pulse Resp BP BP 09/15/20 18:24 37.2 C 74 18 123/74 09/15/20 17:30 70 14 120/64 09/15/20 17:00 78 16 121/69 09/15/20 16:30 68 130/65 09/15/20 16:00 74 21 122/73 09/15/20 15:30 72 17 114/65 09/15/20 15:12 76 18 126/66 09/15/20 15:11 74 18 09/15/20 14:00 76 18 115/72 09/15/20 13:38 78 20 09/15/20 13:30 68 16 120/79 09/15/20 13:06 77 23 136/77 09/15/20 12:30 69 12 129/66 09/15/20 12:00 79 13 139/76 09/15/20 11:30 64 16 105/62 09/15/20 11:24 73 13 126/71 09/15/20 11:01 36.7 C 71 18 117/66 Pulse Ox 09/15/20 18:24 99 09/15/20 17:30 100 09/15/20 17:00 97 09/15/20 16:30 100 09/15/20 16:00 100 09/15/20 15:30 99 09/15/20 15:12 99 09/15/20 15:11 09/15/20 14:00 99 09/15/20 13:38 97 09/15/20 13:30 100 09/15/20 13:06 100 09/15/20 12:30 100 09/15/20 12:00 100 09/15/20 11:30 100 09/15/20 11:24 100 09/15/20 11:01 99 Laboratory Results Laboratory Results WBC 11.55 K/uL (4.8-10.8) H 09/15/20 11:20 RBC 4.19 M/uL (4.2-5.4) L 09/15/20 11:20 Hgb 12.8 g/dL (12.0-16.0) 09/15/20 11:20 Hct 38.1 % (37-47) 09/15/20 11:20 MCV 90.9 fL (80-100) 09/15/20 11:20 MCH 30.5 pg (25-34) 09/15/20 11:20 MCHC 33.6 g/dL (32-36) 09/15/20 11:20 RDW Std Deviation 43.7 fL (36.4-46.3) 09/15/20 11:20 RDW Coeff of [place] 13.1 % (11.5-14.5) 09/15/20 11:20 Plt Count 187 K/uL (130-400) 09/15/20 11:20 MPV 11.3 fL (7.4-10.4) H 09/15/20 11:20 Immature Gran % (Auto) 0.3 % 09/15/20 11:20 Neut % (Auto) 82.5 % 09/15/20 11:20 Lymph % (Auto) 8.1 % 09/15/20 11:20 [place] % (Auto) 8.0 % 09/15/20 11:20 Eos % (Auto) 1.0 % 09/15/20 11:20 Baso % (Auto) 0.1 % 09/15/20 11:20 Neut # (Auto) 9.52 K/uL (1.4-6.5) H 09/15/20 11:20 Lymph # (Auto) 0.94 K/uL (1.2-3.4) L 09/15/20 11:20 [place] # (Auto) 0.92 K/uL (0.11-0.59) H 09/15/20 11:20 Eos # (Auto) 0.12 K/uL (0-0.5) 09/15/20 11:20 Baso # (Auto) 0.01 K/uL (0-0.2) 09/15/20 11:20 Immature Gran # (Auto) 0.04 K/uL (0.00-0.02) H 09/15/20 11:20 RBC Morphology Unremarkable 09/15/20 11:20 APTT 35.4 Seconds (21.0-31.0) H 09/15/20 11:20 PTT Ratio 1.3 09/15/20 11:20 VBG pH 7.42 (7.36-7.41) H 09/15/20 12:23 VBG pCO2 38 mmHg (38-50) 09/15/20 12:23 VBG pO2 32 mmHg 09/15/20 12:23 VBG HCO3 24 mmol/L 09/15/20 12:23 VBG O2 Saturation < 60.0 % 09/15/20 12:23 VBG Base Excess -0.4 mEq/L 09/15/20 12:23 Barometric Pressure 732.2 mm/Hg 09/15/20 12:23 Sodium 136 mmol/L (136-145) 09/15/20 11:20 Potassium 3.2 mmol/L (3.5-5.1) L 09/15/20 11:20 Chloride 101 mmol/L (98-107) 09/15/20 11:20 Carbon Dioxide 25 mmol/L (21-32) 09/15/20 11:20 Anion Gap 9.0 (3-11) 09/15/20 11:20 BUN 14 mg/dl (7-18) 09/15/20 11:20 Creatinine 0.90 mg/dl (0.6-1.2) 09/15/20 11:20 Est Cr Clr Drug Dosing 83.9 ml/min 09/15/20 11:20 Est GFR ( Amer) 92.0 ml/min 09/15/20 11:20 Est GFR (Non-Af Amer) 79.4 ml/min 09/15/20 11:20 BUN/Creatinine Ratio 15.0 (10-20) 09/15/20 11:20 Glucose 188 mg/dl (70-99) H 09/15/20 11:20 POC Glucose 140 mg/dl (70-99) H 09/15/20 18:26 Lactate 1.1 mmol/L (0.4-2.0) 09/15/20 12:23 Calcium 9.1 mg/dl (8.5-10.1) 09/15/20 11:20 Phosphorus 2.2 mg/dl (2.5-4.9) L 09/15/20 11:20 Magnesium 2.2 mg/dl (1.8-2.4) 09/15/20 11:20 Total Bilirubin 1.7 mg/dl (0.2-1) H 09/15/20 11:20 Direct Bilirubin 0.7 mg/dl (0-0.2) H 09/15/20 11:20 AST 18 U/L (15-37) 09/15/20 11:20 ALT 40 U/L (12-78) 09/15/20 11:20 Alkaline Phosphatase 111 U/L (45-117) 09/15/20 11:20 Total Creatine Kinase 43 U/L (26-192) 09/15/20 11:20 Troponin I < 0.015 ng/ml (0-0.045) 09/15/20 11:20 Total Protein 8.2 gm/dl (6.4-8.2) 09/15/20 11:20 Albumin 3.7 gm/dl (3.4-5.0) 09/15/20 11:20 Globulin 4.5 gm/dl (2.5-4.0) H 09/15/20 11:20 Albumin/Globulin Ratio 0.8 (0.9-2) L 09/15/20 11:20 Lipase 47 U/L (73-393) L 09/15/20 11:20 Procalcitonin 4.58 ng/ml (0-0.5) H 09/15/20 11:20 Procalcitonin Cancelled 09/15/20 11:20 TSH 6.210 uIu/ml (0.300-4.500) H 09/15/20 Unknown Free T4 1.28 ng/dl (0.8-1.6) 09/15/20 Unknown HCG, Qual Negative (Negative) 09/15/20 11:20 Urine Color Yellow 09/15/20 11:20 Urine Appearance Cloudy (Clear) A 09/15/20 11:20 Urine pH 6.0 (4.5-7.5) 09/15/20 11:20 Ur Specific [place] 1.007 (1.000-1.030) 09/15/20 11:20 Urine Protein Trace (Negative) H 09/15/20 11:20 Urine Glucose (UA) Negative (Negative) 09/15/20 11:20 Urine Ketones 2+ (Negative) H 09/15/20 11:20 Urine Blood Negative (Negative) 09/15/20 11:20 Urine Nitrite Negative (Negative) 09/15/20 11:20 Urine Bilirubin Negative (Negative) 09/15/20 11:20 Urine Urobilinogen Negative (Negative) 09/15/20 11:20 Ur Leukocyte Esterase Trace (Negative) H 09/15/20 11:20 Urine RBC 0-4 /hpf (0-4) 09/15/20 11:20 Urine WBC 5-10 /hpf (0-5) H 09/15/20 11:20 Ur Epithelial Cells >30 /lpf (0-5) H 09/15/20 11:20 Urine Bacteria 1+ (Negative) H 09/15/20 11:20 Anaplasma Smear See Comment 09/15/20 11:20 Lyme Disease IgG Ab Negative (Negative) 09/15/20 11:20 Lyme Disease IgM Ab Negative (Negative) 09/15/20 11:20 COVID-19 Eval Order Covid19 at [facility] 09/15/20 11:53 SARS-CoV-2 (PCR) NEGATIVE (Negative) 09/15/20 11:53 Impressions Chest X-Ray 09/15/20 11:55 XR chest 1V portable CLINICAL HISTORY: Chest Pain COMPARISON STUDY: No previous studies for comparison. FINDINGS: Lung volumes are normal. Lungs are clear. There is no pneumothorax or pleural effusion. Cardiac size is normal. Mediastinal contours are normal. There is no evidence for pulmonary edema. There is subtle interstitial prominence. IMPRESSION: Mild nonspecific interstitial prominence. ACT 112: Negative or not required by law. Electronically signed by: Rolando Santana M.D. 09/15/2020 12:57 PM Foot X-Ray 09/15/20 11:56 XR foot RT min 3V routine CLINICAL HISTORY: swelling, pain, redness COMPARISON: Right ankle radiographs August 26, 2019. FINDINGS: Lateral view demonstrates significant dorsal soft tissue swelling of the right foot. No acute fracture is noted. There is no evidence for osteomyelitis. There is minimal posterior and plantar calcaneal spurring. IMPRESSION: 1. Right foot dorsal soft tissue swelling. 2. No acute fracture. No evidence for osteomyelitis. ACT 112: Negative or not required by law. Electronically signed by: Rolando Santana M.D. 09/15/2020 1:25 PM Tibia/Fibula X-Ray 09/15/20 11:56 XR tibia fibula RT 2V CLINICAL HISTORY: swelling, pain, redness COMPARISON: Right ankle radiographs August 26, 2019. FINDINGS: No fracture or osseous lesion within the right tibia or fibula is identified. Mild soft tissue swelling is noted. This is suboptimally assessed by radiography. IMPRESSION: No osseous abnormality of the right tibia or fibula. ACT 112: Negative or not required by law. Electronically signed by: Rolando Santana M.D. 09/15/2020 1:02 PM Venous Doppler Study 09/15/20 11:56 US venous doppler LE RT CLINICAL HISTORY: Right leg redness and swelling COMPARISON STUDY: No previous studies for comparison. FINDINGS: Real-time and color flow Doppler imaging were performed. Flow was seen within the femoral, popliteal and calf veins with no intraluminal thrombus demonstrated. The saphenous vein is patent. IMPRESSION: No evidence of right lower extremity DVT. ACT 112: Negative or not required by law. Electronically signed by: Arnulfo Goddard M.D. 09/15/2020 2:45 PM ECG Additional Comments: est Reason : Blood Pressure : / mmHG Vent. Rate : 076 BPM Atrial Rate : 076 BPM P-R Int : 134 ms QRS Dur : 066 ms QT Int : 404 ms P-R-T Axes : 047 066 -14 degrees QTc Int : 454 ms Normal sinus rhythm Possible Left atrial enlargement Septal infarct , age undetermined Abnormal ECG No previous ECGs available Confirmed by Maxime Smith ([id number]) on 09/15/2020 4:01:51 Code Status & VTE Plan VTE Prophylaxis Plan VTE Prophylaxis will be ordered: Yes PG Care Time/CCT Total # of Minutes Spent Total Time Spent with Patient: Total time spent is greater than 50% in coordination of care (as documented) at patient's floor/unit and/or counseling patient: Coding Level of Care Code INT OBSERVATION CARE 50M LVL 2 Diagnoses Pain of right lower extremity M79.604 Asthma J45.909 Diabetes type 1, uncontrolled E10.65 Graves disease E05.00
[2020-09-15] MEDS ORDERED: VANCOMYCIN HCL 1,750 MG in SODIUM CHLORIDE 0.9% 500 ML IV ONE (19:30)
--- NOTE | 2020-09-15 20:00 | Pharmacy Report ---
Pharmacy Abx Initial Consult - Date of Service September 15, 2020 - Pharmacy Dosing Scope Date of Consult: 09/15/20 Consultation requested by: Dr. Andrzej PLASCENCIA Pharmacy is consulted to initiate VANCOMYCIN IV dosing therapy, order appropriate labs and adjust drug dose/frequency. - Subjective The patient is a 40 year old F admitted on 09/15/20 15:09. - Objective Height: 5 ft 3 in Weight: 81.647 kg Vital Signs (Past 12hrs): Vital Signs Temp Pulse Pulse Pulse Resp BP BP 09/15/20 18:24 37.2 C 74 18 123/74 09/15/20 17:30 70 14 120/64 09/15/20 17:00 78 16 121/69 09/15/20 16:30 68 130/65 09/15/20 16:00 74 21 122/73 09/15/20 15:30 72 17 114/65 09/15/20 15:12 76 18 126/66 09/15/20 15:11 74 18 09/15/20 14:00 76 18 115/72 09/15/20 13:38 78 20 09/15/20 13:30 68 16 120/79 09/15/20 13:06 77 23 136/77 09/15/20 12:30 69 12 129/66 09/15/20 12:00 79 13 139/76 09/15/20 11:30 64 16 105/62 09/15/20 11:24 73 13 126/71 09/15/20 11:01 36.7 C 71 18 117/66 Pulse Ox 09/15/20 18:24 99 09/15/20 17:30 100 09/15/20 17:00 97 09/15/20 16:30 100 09/15/20 16:00 100 09/15/20 15:30 99 09/15/20 15:12 99 09/15/20 15:11 09/15/20 14:00 99 09/15/20 13:38 97 09/15/20 13:30 100 09/15/20 13:06 100 09/15/20 12:30 100 09/15/20 12:00 100 09/15/20 11:30 100 09/15/20 11:24 100 09/15/20 11:01 99 Lab Results (24hrs): Laboratory Tests (24 Hours) 0709/15/20 09/15/20 11:20 11:20 11:20 WBC Neut # (Auto) Creatinine 0.90 Est Cr Clr Drug Dosing 83.9 Total Creatine Kinase 43 Procalcitonin Cancelled 4.58 H 09/15/20 11:20 WBC 11.55 H Neut # (Auto) 9.52 H Creatinine Est Cr Clr Drug Dosing Total Creatine Kinase Procalcitonin Micro Results: 09/15/20 11:20 Urine Culture - Pending Urine,Clean Catch 09/15/20 12:23 Aerobic Blood Culture - Pending Blood Anaerobic Blood Culture - Pending 09/15/20 11:20 Aerobic Blood Culture - Pending Blood Anaerobic Blood Culture - Pending - Assessment & Plan Assessment 40 year old F initiated on IV Vancomycin + Cefepime for worsening swelling, redness and pain of the RLE. Plan Vancomycin + Cefepime for treatment of SST Vancomycin IV * Estimated PK Parameters: Vd 68.1 L, t1/2 13.6 hr * Loading dose: 1750 mg (20 mg/kg) * Maintenance dose: 1000 mg IV ( 12mg/kg) every 12 hours * Estimated AUC = 477mg/ml.hr * Goal trough level for SST : 10 to 15 mcg/mL * Target AUC range: 400-600 mg/ml.hr * Trough level ordered for 09/18/20 @ 0530 (prior to 5th maintenance dose) Cefepime * Continue 2,000mg IV Q 12hrs Pharmacy will continue to follow and will adjust dose/frequency as necessary. Thank you.
[2020-09-15] MEDS: ENOXAPARIN INJ 40 MG/0.4 ML SYR SQ SCH (20:13)
[2020-09-15] MEDS: CEFEPIME 2,000 MG in SYRINGE 0 ML IV SCH (20:14)
[2020-09-15] MEDS: MONTELUKAST SODIUM 10 MG TABLET PO SCH (20:14)
[2020-09-15] MEDS: NovoLOG INSULIN PUMP SCH (21:15)
[2020-09-16] MEDS: VANCOMYCIN HCL 1,000 MG in SODIUM CHLORIDE 0.9% 250 ML IV SCH ×2 (05:17→17:19)
[2020-09-16 06:28] LABS: Basophils # (auto) 0.02 K/uL (0-0.2); Basophils % (auto) 0.3 %; Eosinophils # (auto) 0.13 K/uL (0-0.5); Eosinophils % (auto) 1.8 %; Hemoglobin 10.4 g/dL (12.0-16.0); Immature Granulocytes # (auto) 0.02 K/uL (0.00-0.02); Immature Granulocytes % (auto) 0.3 %; Lymphocytes # (auto) 1.11 K/uL (1.2-3.4); Lymphocytes % (auto) 15.3 %; Mean Corpuscular Hemoglobin 29.3 pg (25-34); Mean Corpuscular Hgb Conc 32.5 g/dL (32-36); Mean Corpuscular Volume 90.1 fL (80-100); Mean Platelet Volume 11.4 fL (7.4-10.4); Monocytes # (auto) 0.57 K/uL (0.11-0.59); Monocytes % (auto) 7.9 %; Neutrophils % (auto) 74.4 %; Platelet Count 145 K/uL (130-400); RDW Coefficient of Variation 13.2 % (11.5-14.5); RDW Standard Deviation 43.6 fL (36.4-46.3); Red Blood Count 3.55 M/uL (4.2-5.4); White Blood Count 7.25 K/uL (4.8-10.8)
[2020-09-16] MEDS ORDERED: PROMETHAZINE HCL 12.5 MG in SODIUM CHLORIDE 0.9% 50 ML IV ONE (07:00)
[2020-09-16 07:18] LABS: Albumin Level 2.9 gm/dl (3.4-5.0); BUN Creatinine Ratio 17.9 (10-20); Bilirubin Direct 0.4 mg/dl (0-0.2); Bilirubin,Total 0.9 mg/dl (0.2-1); Calcium 8.2 mg/dl (8.5-10.1); Creatinine Clr Calc Pharmacy 93.6 ml/min; Est GFR (African American) 106.1 ml/min; Est GFR (Non-African American) 91.6 ml/min; Potassium 3.6 mmol/L (3.5-5.1); Total Protein 6.7 gm/dl (6.4-8.2)
[2020-09-16 07:42] LABS: Estimated Average Glucose 166 mg/dl; Hemoglobin A1C 7.4 % (4.5-5.6)
[2020-09-16] MEDS ORDERED: INSULIN ASPART PER UNIT SQ SCH (09:00)
[2020-09-16] MEDS: ACETAMINOPHEN 325 MG TAB PO PRN (09:08)
[2020-09-16] MEDS: CEFEPIME 2,000 MG in SYRINGE 0 ML IV SCH ×2 (09:09→21:11)
[2020-09-16] MEDS: CETIRIZINE HCL 10 MG TABLET PO SCH (09:10)
[2020-09-16] MEDS: methIMAzole 5 MG TABLET PO SCH (09:10)
[2020-09-16] MEDS: FLUTICASONE PROPIONATE NA SPR 16 GM BTL SCH (09:11)
[2020-09-16] MEDS: NovoLOG INSULIN PUMP SCH ×4 (09:12→22:12)
--- NOTE | 2020-09-16 15:46 | Hospitalist Progress Note ---
Date of Service September 16, 2020 Assessment & Plan (1) Pain of right lower extremity: Plan: 40yo female with history of DM-I presenting with 3 days of persistent fever, chills, body aches and malaise associated with worsening redness/swelling and pain of RLE. Patient febrile, hemodynamically stable. She has an elevated WBC as well as procalcitonin. Concern for cellulitis. No DVT or fracture. No clinical evidence of deep soft-tissue or necrotizing fasciitis at this time. -Observation to medical -Follow cultures - blood and urine. negative 24 hours, no symptoms of UTI -Vancomycin and Cefepime empirically - improving on this regimen, will need MRSA coverage on discharge (2) Cellulitis of leg, right: Plan: As above (3) Diabetes type 1, uncontrolled: Plan: Blood sugar presently 185. Patient with insulin pump in place, states that her blood sugars have been lower than usual which she thinks is secondary to her recent hiking and biking and increased exercise. Patient manages her own pump without difficulty -May continue home insulin pump -[facility] qAC/HS (4) Asthma: Plan: Chronic. Well controlled -Continue Singulair (5) Graves disease: Plan: Chronic. TSH elevated at 6.21. Patient states that she hasn't taken this medication for some time. -Continue Methimazole 2.5mg po q2D Plan: Ppx - Lovenox 40mg SQ daily Code - Full Dispo - Observation to Medical, expect discharge tomorrow after final cultures back Admission and Anticipated Discharge Date Admission Date: September 15, 2020 Subjective [place] feverish this morning with temp 37.6. Foot erythema significantly improved. Swelling mildly decreased. No history of gout. Unclear where the infection came from but she wears stocking all the time due to lymphedema and has some maceration in between her toes. Previously seen by podiatry for lymphedema but not recently or routinely. No prior foot infections. No peripheral artery disease or symptoms of such. Review of Systems 2 Review of Systems: All systems reviewed & are unremarkable except as noted in HPI & below Physical Exam Constitutional: WD/WN, vitals as above Respiratory: normal respiratory effort, lungs clear to auscultation Cardiovascular: Rate/Rhythm: regular rate and regular rhythm Extremities: + pedal edema (2+ right, 1+ left, pre-tibial) Skin: + erythema (mild around right foot below ankle with associated swelling) Neurologic: moves all extremities and awake; not confused Psychiatric: A+Ox3, euthymic affect Results & Data Results & Data ([facility]) Vital Signs (Past 12 Hours) Vital Signs Temp Pulse Resp BP Pulse Ox 09/16/20 10:52 37.2 C 09/16/20 08:48 37.6 C H 61 16 111/76 97 PG Care Time/CCT Total # of Minutes Spent Total Time Spent with Patient: Total time spent is greater than 50% in coordination of care (as documented) at patient's floor/unit and/or counseling patient: Coding Level of Care Code 99396 Subseq Obs Care Lvl 2 Diagnoses Pain of right lower extremity M79.604 Diabetes type 1, uncontrolled E10.65 Glycemic state: with hyperglycemia Asthma J45.909 Graves disease E05.00 Cellulitis of leg, right L03.115 (1) Diabetes type 1, uncontrolled Glycemic state: with hyperglycemia Qualified Code(s): E10.65 - Type 1 diabetes mellitus with hyperglycemia
[2020-09-16] MEDS: MONTELUKAST SODIUM 10 MG TABLET PO SCH (21:02)
[2020-09-16] MEDS: ENOXAPARIN INJ 40 MG/0.4 ML SYR SQ SCH (21:03)
[2020-09-16] MEDS: CLOTRIMAZOLE 1% CR 15 GM TUBE EXT SCH (21:07)
[2020-09-17] MEDS: VANCOMYCIN HCL 1,000 MG in SODIUM CHLORIDE 0.9% 250 ML IV SCH ×2 (05:46→18:35)
[2020-09-17 09:12] LABS: Creatinine Clr Calc Pharmacy 108.6 ml/min; Est GFR (African American) 125.3 ml/min; Est GFR (Non-African American) 108.1 ml/min
[2020-09-17] MEDS: FLUTICASONE PROPIONATE NA SPR 16 GM BTL SCH (09:19)
[2020-09-17] MEDS: CEFEPIME 2,000 MG in SYRINGE 0 ML IV SCH ×2 (09:19→20:54)
[2020-09-17] MEDS: CETIRIZINE HCL 10 MG TABLET PO SCH (09:19)
[2020-09-17] MEDS: CLOTRIMAZOLE 1% CR 15 GM TUBE EXT SCH ×2 (09:19→20:09)
[2020-09-17] MEDS: NovoLOG INSULIN PUMP SCH ×4 (09:42→21:39)
[2020-09-17] MEDS: MONTELUKAST SODIUM 10 MG TABLET PO SCH (20:07)
[2020-09-17] MEDS: ENOXAPARIN INJ 40 MG/0.4 ML SYR SQ SCH (20:08)
--- NOTE | 2020-09-17 22:43 | Hospitalist Progress Note ---
Date of Service September 17, 2020 Assessment & Plan (1) Pain of right lower extremity: Plan: 40yo female with history of DM-I presenting with 3 days of persistent fever, chills, body aches and malaise associated with worsening redness/swelling and pain of RLE. Patient febrile, hemodynamically stable. She has an elevated WBC as well as procalcitonin. Concern for cellulitis. No DVT or fracture. No clinical evidence of deep soft-tissue or necrotizing fasciitis at this time. -Observation to medical -Follow cultures - blood and urine. negative 48 hours, no symptoms of UTI -Vancomycin and Cefepime empirically - improving on this regimen, will need MRSA coverage on discharge (2) Cellulitis of leg, right: Plan: As above (3) Diabetes type 1, uncontrolled: Plan: Blood sugar presently 185. Patient with insulin pump in place, states that her blood sugars have been lower than usual which she thinks is secondary to her recent hiking and biking and increased exercise. Patient manages her own pump without difficulty -May continue home insulin pump -[facility] qAC/HS (4) Asthma: Plan: Chronic. Well controlled -Continue Singulair (5) Graves disease: Plan: Chronic. TSH elevated at 6.21. Patient states that she hasn't taken this medication for some time. -Continue Methimazole 2.5mg po q2D Plan: Ppx - Lovenox 40mg SQ daily Code - Full Dispo - Observation to Medical, expect discharge tomorrow after final cultures back Admission and Anticipated Discharge Date Admission Date: September 15, 2020 Subjective Lives at home with 2 children. Feels she is unable to walk on her foot at the present time due to significant pain and swelling in the whole foot. Erythema dramatically reduced at this stage. No further fevers or chills. Review of Systems Review of Systems: All systems reviewed & are unremarkable except as noted in HPI & below Physical Exam Constitutional: WD/WN, vitals as above Respiratory: normal respiratory effort, lungs clear to auscultation Cardiovascular: Rate/Rhythm: regular rate and regular rhythm Extremities: + pedal edema (2+ right, 1+ left, pre-tibial) Skin: + erythema (reduced around right foot below ankle with associated swelling) Neurologic: moves all extremities and awake; not confused Psychiatric: A+Ox3, euthymic affect Results & Data Results & Data ([facility]) Vital Signs (Past 12 Hours) Vital Signs Temp Pulse Resp BP Pulse Ox 09/17/20 15:13 37.2 C 62 16 127/77 97 PG Care Time/CCT Total # of Minutes Spent Total Time Spent with Patient: Total time spent is greater than 50% in coordination of care (as documented) at patient's floor/unit and/or counseling patient: Coding Level of Care Code 35357 Subseq Obs Care Lvl 2 Diagnoses Pain of right lower extremity M79.604 Cellulitis of leg, right L03.115 Diabetes type 1, uncontrolled E10.65 Glycemic state: with hyperglycemia Asthma J45.909 Graves disease E05.00 (1) Diabetes type 1, uncontrolled Glycemic state: with hyperglycemia Qualified Code(s): E10.65 - Type 1 diabetes mellitus with hyperglycemia
[2020-09-17] MEDS ORDERED: PHARMACY GLYCEMIC MGMT CONSULT PRN (22:52)
[2020-09-18] MEDS ORDERED: VANCOMYCIN TROUGH ONE (05:30)
[2020-09-18] MEDS: VANCOMYCIN HCL 1,000 MG in SODIUM CHLORIDE 0.9% 250 ML IV SCH ×2 (06:27→21:11)
[2020-09-18 07:08] LABS: Creatinine Clr Calc Pharmacy 97.3 ml/min; Est GFR (African American) 111.2 ml/min; Est GFR (Non-African American) 95.9 ml/min
--- NOTE | 2020-09-18 07:54 | Pharmacy Report ---
Pharmacy Abx Dose Short Note - Date of Service September 18, 2020 - Assessment & Plan Assessment 40 year old F receiving vancomycin/cefepime for treatment of cellulitis Day # 4 of antimicrobial therapy. Plan Vancomycin * Trough level came back subtherapeutic today at ~7 mcg/ml (goal 10-15 mcg/ml for cellulitis) * Will adjust vancomycin dosing to 1000 mg iv q 8 hr interval to target higher trough level * Cultures negative thus far, if continued improvement likely discharge soon per MD notes Pharmacy will continue to follow and will adjust dose/frequency as necessary. Thank you.
[2020-09-18] MEDS: CEFEPIME 2,000 MG in SYRINGE 0 ML IV SCH ×2 (08:25→21:08)
[2020-09-18] MEDS: methIMAzole 5 MG TABLET PO SCH (08:25)
[2020-09-18] MEDS: CETIRIZINE HCL 10 MG TABLET PO SCH (08:25)
[2020-09-18] MEDS: FLUTICASONE PROPIONATE NA SPR 16 GM BTL SCH (08:25)
[2020-09-18] MEDS: CLOTRIMAZOLE 1% CR 15 GM TUBE EXT SCH (08:25)
[2020-09-18] MEDS: NovoLOG INSULIN PUMP SCH ×4 (08:43→22:26)
[2020-09-18] MEDS ORDERED: VANCOMYCIN HCL 1,000 MG in SODIUM CHLORIDE 0.9% 250 ML IV SCH (14:00)
[2020-09-18 14:59] LABS: BUN Creatinine Ratio 14.4 (10-20); C Reactive Protein 3.93 mg/dl (0-0.29); Calcium 9.2 mg/dl (8.5-10.1); Creatinine Clr Calc Pharmacy 94.8 ml/min; Est GFR (African American) 107.8 ml/min; Hematocrit (blood only) 36.4 % (37-47); Hemoglobin 12.2 g/dL (12.0-16.0); Mean Corpuscular Hemoglobin 29.3 pg (25-34); Mean Corpuscular Hgb Conc 33.5 g/dL (32-36); Mean Corpuscular Volume 87.5 fL (80-100); Mean Platelet Volume 11.6 fL (7.4-10.4); Platelet Count 235 K/uL (130-400); Potassium 3.5 mmol/L (3.5-5.1); RDW Coefficient of Variation 12.7 % (11.5-14.5); RDW Standard Deviation 40.8 fL (36.4-46.3); Red Blood Count 4.16 M/uL (4.2-5.4); White Blood Count 6.78 K/uL (4.8-10.8)
[2020-09-18 15:04] LABS: Basophils # (auto) 0.02 K/uL (0-0.2); Basophils % (auto) 0.3 %; Eosinophils # (auto) 0.15 K/uL (0-0.5); Eosinophils % (auto) 2.2 %; Immature Granulocytes # (auto) 0.06 K/uL (0.00-0.02); Immature Granulocytes % (auto) 0.9 %; Lymphocytes # (auto) 0.98 K/uL (1.2-3.4); Lymphocytes % (auto) 14.5 %; Monocytes # (auto) 0.67 K/uL (0.11-0.59); Monocytes % (auto) 9.9 %; Neutrophils % (auto) 72.2 %
[2020-09-18] MEDS ORDERED: cephALEXin 500 MG CAP PO SCH (17:00)
[2020-09-18] MEDS: ACETAMINOPHEN 325 MG TAB PO PRN (17:50)
[2020-09-18] MEDS ORDERED: VANCOMYCIN CONSULT ACTIVE PRN (18:19)
[2020-09-18] MEDS ORDERED: CEFEPIME CONSULT ACTIVE PRN (18:19)
[2020-09-18] MEDS ORDERED: DOXYCYCLINE HYCLATE 100 MG CAP PO SCH (21:00)
[2020-09-18] MEDS: oxyCODONE HCL IR 5 MG TAB (IMMEDIATE RELEASE) PO PRN ×2 (21:08→21:21)
[2020-09-18] MEDS: MONTELUKAST SODIUM 10 MG TABLET PO SCH (21:10)
[2020-09-18] MEDS: MICONAZOLE NITRATE POWDER 43 GM EXT SCH (21:10)
[2020-09-18] MEDS: ENOXAPARIN INJ 40 MG/0.4 ML SYR SQ SCH (22:02)
--- NOTE | 2020-09-18 22:57 | Hospitalist Progress Note ---
Date of Service September 18, 2020 Assessment & Plan (1) Pain of right lower extremity: Plan: 40yo female with history of DM-I presenting with 3 days of persistent fever, chills, body aches and malaise associated with worsening redness/swelling and pain of RLE. Patient febrile, hemodynamically stable. She has an elevated WBC as well as procalcitonin, now resolved. Concern for cellulitis. No DVT or fracture. No clinical evidence of deep soft-tissue or necrotizing fasciitis at this time. -Change to admission on medical -Follow cultures - blood and urine. negative 48 hours, no symptoms of UTI -Vancomycin and Cefepime empirically - switched to keflex/doxy initially because procalcitonin now negative and WBC improving but given clinical deterioration will consult orthopedics and switch back to IV antibiotics. Suspect mostly due to lymphedema. (2) Cellulitis of leg, right: Plan: As above (3) Diabetes type 1, uncontrolled: Plan: Patient with insulin pump in place, states that her blood sugars have been lower than usual which she thinks is secondary to her recent hiking and biking and increased exercise. Patient manages her own pump without difficulty -May continue home insulin pump -[facility] qAC/HS (4) Asthma: Plan: Chronic. Well controlled -Continue Singulair (5) Graves disease: Plan: Chronic. TSH elevated at 6.21. Patient states that she hasn't taken this medication for some time. -Continue Methimazole 2.5mg po q2D Plan: Ppx - Lovenox 40mg SQ daily Code - Full Dispo - Change to admission Admission and Anticipated Discharge Date Admission Date: September 18, 2020 Subjective Erythema mildly worse today but pain especially appears to be getting worse. Not moving the foot much due to pain. Unable to put any pressure on foot due to the pain. Procalcitonin and WBC resolved. No further fever or chills. Review of Systems Review of Systems: All systems reviewed & are unremarkable except as noted in HPI & below Physical Exam Constitutional: WD/WN, vitals as above Respiratory: normal respiratory effort, lungs clear to auscultation Cardiovascular: Rate/Rhythm: regular rate and regular rhythm Extremities: + pedal edema (2+ right, 1+ left, pre-tibial) Skin: + erythema (reduced around right foot below ankle with associated swelling) Neurologic: moves all extremities and awake; not confused Psychiatric: A+Ox3, euthymic affect Results & Data Results & Data ([facility]) Vital Signs (Past 12 Hours) Vital Signs Temp Pulse Resp BP Pulse Ox 09/18/20 14:37 37.1 C 65 17 124/73 98 PG Care Time/CCT Total # of Minutes Spent Total Time Spent with Patient: Total time spent is greater than 50% in coordination of care (as documented) at patient's floor/unit and/or counseling patient: Coding Level of Care Code 09578 Subseq Hosp Care Lvl 2 Diagnoses Pain of right lower extremity M79.604 Cellulitis of leg, right L03.115 Diabetes type 1, uncontrolled E10.65 Glycemic state: with hyperglycemia Asthma J45.909 Graves disease E05.00 (1) Diabetes type 1, uncontrolled Glycemic state: with hyperglycemia Qualified Code(s): E10.65 - Type 1 diabetes mellitus with hyperglycemia
[2020-09-19] MEDS: oxyCODONE HCL IR 5 MG TAB (IMMEDIATE RELEASE) PO PRN (04:11)
[2020-09-19] MEDS: VANCOMYCIN HCL 1,000 MG in SODIUM CHLORIDE 0.9% 250 ML IV SCH ×2 (05:25→14:26)
[2020-09-19 06:17] LABS: Basophils # (auto) 0.01 K/uL (0-0.2); Basophils % (auto) 0.1 %; Eosinophils # (auto) 0.16 K/uL (0-0.5); Eosinophils % (auto) 2.3 %; Hematocrit (blood only) 33.7 % (37-47); Hemoglobin 11.2 g/dL (12.0-16.0); Immature Granulocytes # (auto) 0.13 K/uL (0.00-0.02); Immature Granulocytes % (auto) 1.9 %; Lymphocytes # (auto) 0.91 K/uL (1.2-3.4); Mean Corpuscular Hemoglobin 29.3 pg (25-34); Mean Corpuscular Hgb Conc 33.2 g/dL (32-36); Mean Corpuscular Volume 88.2 fL (80-100); Mean Platelet Volume 11.2 fL (7.4-10.4); Monocytes % (auto) 11.4 %; Neutrophils # (auto) 4.98 K/uL (1.4-6.5); Neutrophils % (auto) 71.3 %; Platelet Count 216 K/uL (130-400); RDW Coefficient of Variation 12.8 % (11.5-14.5); RDW Standard Deviation 40.8 fL (36.4-46.3); Red Blood Count 3.82 M/uL (4.2-5.4); White Blood Count 6.99 K/uL (4.8-10.8)
[2020-09-19 06:44] LABS: BUN Creatinine Ratio 18.6 (10-20); C Reactive Protein 3.43 mg/dl (0-0.29); Calcium 8.6 mg/dl (8.5-10.1); Creatinine Clr Calc Pharmacy 120.8 ml/min; Est GFR (African American) 129.8 ml/min; Potassium 3.7 mmol/L (3.5-5.1)
[2020-09-19] MEDS: ACETAMINOPHEN 325 MG TAB PO PRN (07:19)
[2020-09-19] MEDS: CETIRIZINE HCL 10 MG TABLET PO SCH (09:36)
[2020-09-19] MEDS: MICONAZOLE NITRATE POWDER 43 GM EXT SCH (09:36)
[2020-09-19] MEDS: NovoLOG INSULIN PUMP SCH ×3 (09:36→17:44)
[2020-09-19] MEDS: FLUTICASONE PROPIONATE NA SPR 16 GM BTL SCH (09:37)
[2020-09-19] MEDS: CEFEPIME 2,000 MG in SYRINGE 0 ML IV SCH (09:41)
--- NOTE | 2020-09-19 10:29 | Consultation Report ---
CHIEF COMPLAINT: Right lower extremity swelling and cellulitis. HISTORY OF PRESENT ILLNESS: A 40-year-old white female with a long history of type 2 diabetes as wel l as an 8+ year history of chronic lymphedema in right lower extremity, who presents now with about a week history of increasing swelling and apparent cellulitis of the right leg. No history of trauma. She does have chronic lymphedema in this lower extremity, treated at several therapy places locally . She denies any history of infection in this side before. She has been treated with antibiotics in the hospital and had been slow to get better. We are consulted for evaluation. PAST MEDICAL HISTORY: Significant for: 1. Type 2 diabetes. 2. Asthma. 3. Graves' disease. The remainder of her past medical history is as per the admission H and P. OBJECTIVE: VITAL SIGNS: Temperature 38.1. Vital signs are stable. PHYSICAL EXAMINATION: GENERAL: Shows a pleasant 40-year-old female. She is lying in bed, looks reasonably comfortable. EXTREMITIES: Examination of the right leg reveals diffuse swelling of her right foot and ankle up to about the mid calf at best. It is very diffuse. There is no fluctuance and no localized areas of a bscess. There are no open wounds. She can dorsiflex and plantarflex her foot with some moderate mert unt of pain. She is neurologically intact. X-rays of the right foot and tib-fib were relatively unremarkable. She has some soft tissue swelling . No signs of bone infection. Ultrasound; she had a venous ultrasound, which shows no signs of DVT. No report of obvious fluid col lections. LABORATORY DATA: White blood cell count is 6.99 this morning. Sed rate yesterday was 59 with a CRP of 3.43. IMPRESSION: A 40-year-old white female with a history of diabetes as well as chronic lymphedema in t he right lower extremity with some underlying cellulitis. Has been slow to respond to antibiotics. I do not detect any localized abscesses. PLAN: I think this just needs to continue the antibiotics, lymphedema treatment, elevation and edema control. We will get an MRI of her foot and ankle just to make sure there is no localized abscess. She can weight bear as tolerated. Would recommend a compression bandage on her leg either calf high TEDs stocking or just wrap this with soft roll and Ortega bandage, which is more likely to be manageabl e from the comfort level for her. She can weight bear as tolerated. We will continue to follow her along as needed. Any orthopedic questions can be directed to me at [phone]. Job ID: [id number]
[2020-09-19] MEDS ORDERED: GADOBUTROL 10ML VIAL IV ONE (11:44)
[2020-09-19] MEDS ORDERED: VANCOMYCIN TROUGH ONE (13:30)
--- NOTE | 2020-09-19 13:40 | Magnetic Resonance Report ---
MR ankle RT wo/w con CLINICAL HISTORY: Right Foot and ankle cellulitis - rule out abscess. COMPARISON STUDY: Right ankle radiographs August 26, 2019. TECHNIQUE: Utilizing a 1.5 Genny magnet and dedicated coil, multiplanar, multiecho imaging of the rig ht ankle was performed and postcontrast administration. Intravenous injection of 8 cc of Gadavist was uneventful. FINDINGS: Alignment of the right ankle is anatomic. Achilles tendon is intact. Plantar fascia is inta ct. Talar dome is unremarkable. There is no marrow edema or marrow replacement within the visualized skeletal structures. No fluid collection is identified to suggest an abscess. There is moderate subcu taneous fluid of the right lower leg and ankle. There is an equivocal split tear of the peroneus brev is. The flexor and extensor tendons are intact. The MRI of the right foot will be reported separately . IMPRESSION: 1. Moderate subcutaneous fluid of the right lower leg and right ankle. This may reflect edema or cell ulitis. No abscess. 2. No evidence for osteomyelitis within the right ankle. ACT 112: Negative or not required by law. Electronically signed by: Rolando Santana M.D. 09/19/2020 1:39 PM
--- NOTE | 2020-09-19 13:44 | Magnetic Resonance Report ---
MR foot RT wo/w con CLINICAL HISTORY: Right foot and ankle cellulitis - rule out abscess COMPARISON STUDY: Right foot radiographs September 15, 2020. TECHNIQUE: Utilizing a 1.5 Genny magnet and dedicated coil, multiplanar, multi echo imaging of the ri t foot was performed pre and postcontrast administration. Intravenous injection of 8 cc of Gadavist was uneventful. FINDINGS: Alignment of the right foot is anatomic. The tarsometatarsal joints are intact. There is no marrow edema within the right foot to suggest osteomyelitis. There is no evidence for fracture. Note is made of extensive dorsal subcutaneous fluid and enhancement of the right foot. There is no fluid collection to suggest an abscess. Visualized portions of the flexor and extensor tendons are intact. No mass is identified on this examination. There is no joint effusion within the right foot. IMPRESSION: 1. Extensive subcutaneous fluid and enhancement of the dorsal aspect of the right foot. This favors c ellulitis. No fluid collection to suggest abscess. 2. No evidence for osteomyelitis within the right foot. ACT 112: Negative or not required by law. Electronically signed by: Rolando Santana M.D. 09/19/2020 1:43 PM
--- NOTE | 2020-09-19 17:01 | Discharge Summary ---
Date of Service September 19, 2020 Admission HPI Per Admitting Provider Latoya Hines is a 40yo female with history of DM-I with insulin pump in place, Hypothyroidism and chronic lymphedema presenting with 3 days of fever, diffuse body aches, nausea with 3 episodes of non-bloody/non-bilious emesis. Patient was seen at [facility] on Monday with these complaints - at that time she was found to have a WBC count of 22 and a bili of 2. Patient was administered IV fluids and anti-emetics and ultimately discharged home with diagnosis of a viral illness. Patient's symptoms have persisted since Monday. She also developed worsening swelling, redness and pain of the RLE. Pain 10/10 in se verity, patient unable to bear weight. Patient has been febrile x 3 days to Tm of 102. She also reports decreased oral intake. Otherwise she is without complaint - specifically denies chest pain/pa lpitations/cough/SOB/abdominal pain/nausea/vomiting/diarrhea or constipation. No dysuria or flank pain. Patient denies trauma to the foot. Denies sick contacts, recent travel or tick bites. ER Course: Doxycycline, Cefepime, Zofran, Ceftriaxone, KPhos Admission Exam Per Admitting Provider General: patient resting comfortably, NAD, non-toxic in appearance, AA&O x 4 Skin: redness of RLE to mid-curry HEENT: NC/AT, PERRL, EOMI, anicteric sclera, conjunctiva without injection, external ear normal to inspection and nontender, nares patent, moist mucus membranes, dentition intact, no oropharyngeal lesions, neck supple, trachea midline, no LAD, no thyromegaly, no JVD Heart: +S1/S2, regular, no m/r/g Lungs: equal air entry bilaterally, no rales/rhonchi/wheezes Abd: +BS, soft, NT/ND, no masses/organomegaly/ascites Ext: warm, 2+ pulses in UE/LE bilaterally, no clubbing/cyanosis, redness of RLE to mid-curry, exquisitely tender to palpation, no crepitus/bullae/lymphangitic streaking, no pain above redness Neuro: nonfocal, patient AA&O x 4, speech intact, no facial droop, moving all extremities on command with equal strength 5/5 Principal Diagnosis Cellulitis Discharge Exam Constitutional WD/WN, vitals as above Respiratory normal respiratory effort, lungs clear to auscultation Cardiovascular Rate/Rhythm: regular rate and regular rhythm Extremities: + pedal edema (2+ right, 1+ left, pre-tibial) Skin + erythema (reduced around right foot below ankle with associated swelling) Neurologic moves all extremities and awake; not confused Psychiatric A+Ox3, euthymic affect Discharge Data Allergies Allergy/AdvReac Type Severity Reaction Status Date / Time Penicillins Allergy Intermediate HIVES Verified 09/15/20 14:42 Fish Containing Products Allergy Verified 09/15/20 14:42 house dust Allergy Verified 09/15/20 14:42 Consultations 09/15/20 13:52 ED Decision to Admit Stat 09/18/20 18:19 Consult Orthopedic Surgery Routine Ordered Studies 09/15/20 11:56 US venous doppler LE RT Stat IMPRESSION: No evidence of right lower extremity DVT. 09/19/20 09:26 MR ankle RT wo/w con Urgent IMPRESSION: 1. Moderate subcutaneous fluid of the right lower leg and right ankle. This may reflect edema or cellulitis. No abscess. 2. No evidence for osteomyelitis within the right ankle MR foot RT wo/w con Urgent IMPRESSION: 1. Extensive subcutaneous fluid and enhancement of the dorsal aspect of the right foot. This favors cellulitis. No fluid collection to suggest abscess. 2. No evidence for osteomyelitis within the right foot. Hospital Course (1) Pain of right lower extremity: (2) Cellulitis of leg, right: (3) Diabetes type 1, uncontrolled: (4) Asthma: (5) Graves disease: Latoya Hines is a 40 year old female admitted to [facility] from September 15-2020 due to fever, weakness and right foot swelling/pain/erythema. She was diagnosed with cellulitis suspect originating between her toes with some maceration in this area. The erythema improved although she is left with swelling secondary to her lymphedema therefore recommended following up with her lymphedema physical therapist for this. Recommended using anti-fungal powder between her toes to help with healing of this skin for the next 2 weeks. After this pay special attention to this area to keep it clean and dry to avoid further infections in the future. MRI of your foot and ankle taken due to slow improvement (suspected due to lymphedema) which did not show any abscess. Total Time Total Time Spent Total Time Spent (In Minutes): 40 Discharge Plan Discharge Items Patient Disposition: Home - Self-Care Reason For Visit: CELLULITIS Discharge Diagnosis: Cellulitis Activity: Resume your previous activity Non-emergency contact: Primary Care Provider Call non-emergency contact if: you have any medication questions and your symptoms worsen Follow-up/Referrals: Tesfaye Cuoch DO [Primary Care Provider] - 10/05/20 9:15 am Diet: Carb Count or DM1 Addtl Attending Provider Instructions: You were observed at [facility] from September 15-2020 due to fever, weakness and right foot swelling/pain/erythema. You were diagnosed with cellulitis (soft tissue infection) of your right foot. Suspect this is from bacteria entering through skin breakdown between your toes. Please finish antibiotic course as prescribed. Recommend using anti-fungal powder between your toes to help with healing of this skin for the next 2 weeks. After this pay special attention to this area to keep it clean and dry to avoid further infections in the future. MRI of your foot and ankle did not show any abscess. Residual swelling is most likely due to your lymphedema, please follow up with physical therapy regarding this. Kind regards, Dr Kosta Hand Pending Studies at Discharge: No Stand-Alone Forms: My [facility], Smoking Cessation Medications and DC Order Prescriptions: New cephalexin 500 mg capsule 500 mg PO QID 6 Days Qty: 24 RF: 0 doxycycline monohydrate 100 mg capsule 100 mg PO BID 6 Days Qty: 12 RF: 0 Continued (DME) compress.stocking,knee,reg,med misc See Dose Instructions .ROUTE .MEDSUPPLY Qty: 3 RF: 0 Xolair 150 mg/mL syringe 150 mg SQ .COMPLEX Qty: 1 RF: 11 (DME) compress.stocking,knee,reg,med Misc See Rx Instructions .ROUTE .MEDSUPPLY Qty: 3 RF: 0 Novolog U-100 Insulin aspart 100 unit/mL solution 50 unit continuous subcutaneous infusion DAILY Qty: 50 RF: 3 fluticasone propionate [Flonase Allergy Relief] 50 mcg/actuation spray,suspension 1 spray intranasal QAM RF: 0 albuterol sulfate 90 mcg/actuation HFA aerosol inhaler 2 inh inhalation Q4H PRN (Reason: shortness of breath or wheezing) Qty: 18 RF: 8 levonorgestrel 20 mcg/24 hours (5 yrs) 52 mg intrauterine device 1 ea IU ONCE Qty: 1 RF: 0 glucagon HCl 1 mg recon soln 1 mg subcut ONCE PRN (Reason: .) RF: 0 multivitamin Tablet 1 tab PO QAM RF: 0 cetirizine [Zyrtec] 10 mg tablet 10 mg PO QAM RF: 0 methimazole 5 mg tablet 2.5 mg PO Q2D RF: 0 montelukast 10 mg tablet 10 mg PO QAM RF: 0 acetaminophen 500 mg Capsule 500 mg PO Q6H PRN (Reason: pain, fever) RF: 0 Discharge Orders: Discharge Order (Routine); Ordered 09/19/20 Ordered By: Kosta Cosby/Other Patient Handouts: Discharge Instructions for Cellulitis Admission Data Admit Date/Time: 09/18/20 13:31 Attending Provider: Kosta Hand Admit Provider: Kosta Hand Primary Care Provider: Tesfaye Couch Other Providers: Jennifer Charles ; Thai Charles Other Interventions: Discharge Summary Assessment (RN) Last Done: 09/19/20 17:33 Coding Level of Care Code D/C DAY MANAGEMENT >30 MINS Diagnoses Pain of right lower extremity M79.604 Cellulitis of leg, right L03.115 Diabetes type 1, uncontrolled E10.65 Glycemic state: with hyperglycemia Asthma J45.909 Graves disease E05.00
[2020-09-20] MEDS ORDERED: VANCOMYCIN TROUGH ONE (13:30)
--- NOTE | 2020-09-29 15:26 | Coding Query ---
CODING QUERY FOR UNCONTROLLED DIABETES To promote full compliance with coding requirements relating to patient care, provider participation is requested in all cases of general forecaster uncertainty. Please assist us with the question(s) below: Coding Question: The term uncontrolled Diabetes was used throughout the record. To be able to code this diagnosis properly, could you please clarify the diagnosis below: ( ) Uncontrolled Diabetes meaning hypoglycemia ( X ) Uncontrolled Diabetes meaning hyperglycemia ( ) Other (please specify) Principal Diagnosis: "that condition established after study, to be chiefly responsible for occasioning the admission of the patient to the hospital for care." Co-Existing Principal Diagnosis: "when two or more diagnoses equally meet the criteria for principal diagnosis as determined by the circumstances of admission, diagnostic work up, and/or therapy provided, and the Alphabetic Index, Tabular List, or another coding guideline does not provide sequencing direction, any one of the diagnoses may be sequenced first." "When the physician has documented what appears to be a current diagnosis in the body of the record, but has not included the diagnosis in the final diagnostic statement, the physician should be asked whether the diagnosis should be added." (Source Coding Clinic 2 QTR90. p3-4) IMELDA
== END 2020-09-19 18:39 | disposition home or self-care (01) | DRG 603 ==
LOC: ED 10:35 → 3N 10:35 → SUATTDRO 15:09 → 3N 18:05